=== PATIENT | male | born 1935 | race Caucasian/White ===

== ENCOUNTER 2024-04-29 04:35 | Inpatient (IN) | payer MEDICARE, SELFPAY ==
[2024-04-29] VITALS (11 sets, daily range): BP systolic 115–191; BP diastolic 22–90; PULSE 62–88; RESP 14–25; TEMP 36.3–37.2; O2SAT 60–100; BMI 25.1; BMI 22.3
--- NOTE | 2024-04-29 | ECG_ITS ---
Test Reason : CHEST PAIN Blood Pressure : */* mmHG Vent. Rate : 73 BPM Atrial Rate : 73 BPM P-R Int : 176 ms QRS Dur : 178 ms QT Int : 458 ms P-R-T Axes : * 253 73 degrees QTcB Int : 504 ms Atrial-sensed ventricular-paced rhythm Abnormal ECG When compared with ECG of 29-Apr-2024 05:02, Premature ventricular complexes are no longer Present Referred By: Nathalie Perez Electronically Signed By: LOREN CROUCH MD
--- NOTE | 2024-04-29 | ECG_ITS ---
Test Reason : SOB REPEAT Blood Pressure : */* mmHG Vent. Rate : 73 BPM Atrial Rate : 73 BPM P-R Int : 172 ms QRS Dur : 172 ms QT Int : 478 ms P-R-T Axes : 60 -80 90 degrees QTcB Int : 526 ms AV dual-paced rhythm with occasional Premature ventricular complexes Abnormal ECG When compared with ECG of 29-Apr-2024 04:37, Premature ventricular complexes are now Present Vent. rate has decreased by 16 bpm Referred By: Jeannine Basurto Electronically Signed By: LOREN CROUCH MD
--- NOTE | ~2024-04-29 | XR_ITS ---
EXAMINATION: XR CHEST CLINICAL INFORMATION: pneumonia COMPARISON: April 29, 2024. TECHNIQUE: Frontal view of the chest was obtained. FINDINGS: Pulmonary reticular pattern. Prominence of the interstitial lung markings. Patchy opacity right lower hemithorax. No pleural effusion. No pneumothorax. Cardiomediastinal silhouette appears unchanged with calcified plaque thoracic aorta. Hiatal hernia. Left-sided pacemaker with 2 intact electrode leads in the right heart chambers. Multilevel thoracic spondylosis. Degenerative changes in the right shoulder. XR/XR chest 1V IMPRESSION: Improved aeration since prior exam. Electronically signed by: Rico Mercado MD 05/01/2024 08:23 AM EDT
--- NOTE | ~2024-04-29 | CT_ITS ---
EXAMINATION: CT CHEST WITHOUT CONTRAST CLINICAL INFORMATION: Hypoxia. Shortness of breath. COMPARISON: Correlated to chest x-ray dated April 29, 2024. TECHNIQUE: Multidetector volumetric CT imaging of the chest was done. Axial MIP volume rendering provided. Sagittal and coronal reformatted images were obtained. This CT examination was performed using dose optimization techniques as appropriate, variously including the following: *Automated exposure control *Adjustment of mA and/or kV according to patient size (this includes techniques or standardized protocols for targeted exams where dose is matched to indication/reason for exam; i.e. extremities or head) *Use of iterative reconstruction technique DLP: 286 mGy centimeter. 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 Multiple EKG wires overlapping the cardiomediastinal silhouette and chest. The upper extremities at both sides LUNGS: Multifocal patchy groundglass with a confluent morphology pattern involving the right lower lung lobe. There is a 19 mm soft tissue attenuation with a focal cavitation in the right lower lung lobe. Peribronchial septal and interlobular septal thickening both lower lung lobes and lingula. Centrilobular emphysematous changes involving mostly the upper lung lobes. There is a subtle pulmonary mosaic pattern. The respiratory airways is grossly patent. No bronchiectasis. No honeycombing. 3 mm pulmonary nodule in the right middle lung lobe. MEDIASTINUM: Calcified plaques throughout the thoracic aorta its main branches and the coronary arteries. Calcified plaques in the mitral valve. Electrode leads in the right heart chambers. No pericardial effusion. There is a large volume hiatal hernia. Nonspecific prominent lymph nodes in the mediastinum and likely pulmonary hilum. CORONARY ARTERY CALCIFICATION: Calcified plaques. PLEURA: Bilateral pleural effusions, small to moderate volume. No pneumothorax. AXILLA: Prominent lymph nodes. UPPER ABDOMEN: Hiatal hernia. Exophytic cystic lesions in the kidneys. Renal cortical thinning both kidneys. Calcified plaques in the splenic artery the abdominal aorta its main branches and the origin of the main renal arteries. There is a stent in the proximal right main renal artery. OSSEOUS STRUCTURES: Multilevel spondylosis throughout the included axial skeleton more conspicuous at T8-9, T11-12 and L2-3 levels with incomplete ankylosis L2-3. No acute fracture or gross listhesis. No lytic or blastic lesions. Degenerative changes in the glenohumeral joints. S-shaped curvature of the thoracolumbar spine. CT/CT chest wo IV con IMPRESSION: Multifocal pneumonia with the 19 mm cavitary lesion right lower lung lobe. Neoplasm cannot be excluded. Bilateral pleural effusions, small to moderate volume. Coronary artery disease and atherosclerosis disease. Hiatal hernia, moderate volume. Calcified mitral valve. Concerning medical renal disease. Fleischner guidelines were followed. Electronically signed by: Rico Mercado MD 04/29/2024 10:31 AM EDT
--- NOTE | ~2024-04-29 | XR_ITS ---
CLINICAL HISTORY: sob 1 view chest x-ray Comparison: None Findings: Lungs are well inflated. Left-sided pacemaker with right atrial and right ventricular pacer leads. Cardiac silhouette is within normal limits. Masslike area of consolidation seen within the right lung base measuring 6.2 x 4.7 cm in size. Central interstitial markings are diffusely prominent. Small bilateral pleural effusions, [id number]. IMPRESSION: 1. Congestive heart failure. 2. Masslike consolidation of the right lung base. Although this is most likely due to focal area of infiltrate, neoplastic process is not excluded. Therefore, follow up PA and lateral chest x-ray in 4-6 weeks suggested to ensure resolution. This document has been electronically signed by: Ethan Tomlinson MD on 04/29/2024 06:27:36
[2024-04-29] MEDS: Nitroglycerin 2 % Oint 1 GM Packet 1 INCH TRANSDERMA (04:40)
[2024-04-29] MEDS: Furosemide 100 MG/10 ML VIAL 80 MG IVPUSH ×2 (04:40→16:41)
[2024-04-29] MEDS: LORazepam 2 MG/ML VIAL 1 MG IVPUSH ×2 (04:40→04:45)
--- NOTE | 2024-04-29 04:44 | ECG_ITS ---
Test Reason : SOB Blood Pressure : */* mmHG Vent. Rate : 89 BPM Atrial Rate : 89 BPM P-R Int : 180 ms QRS Dur : 176 ms QT Int : 418 ms P-R-T Axes : * -78 88 degrees QTcB Int : 508 ms Atrial-sensed ventricular-paced rhythm Abnormal ECG No previous ECGs available Referred By: Jeannine Basurto Electronically Signed By: LOREN CROUCH MD
[2024-04-29 04:54] LABS: Venous Blood Gas Refer to POC result
[2024-04-29 04:56] LABS: Basophils Percent Auto 0.6 % (0-2); Eosinophils Absolute Auto 0.5 X10*3/uL (0.0-0.4); Eosinophils Percent Auto 9.6 % (0-4); Hematocrit 34.6 % (42.0-52.0); Hemoglobin 11.4 g/dl (14.0-18.0); Imm Gran Abs Auto 0.02 X10*3/uL (0.00-0.03); Imm Gran Pct Auto 0.4 % (0.0-0.4); Lymphocytes Absolute Auto 0.8 X10*3/uL (1.2-4.9); Lymphocytes Percent Auto 16.4 % (20-40); MANUAL DIFF FLAG NO; Mean Corpuscular HGB Conc 32.9 g/dl (31.0-36.0); Mean Platelet Volume 10.2 fL (9.4-12.4); Monocytes Absolute Auto 0.2 X10*3/uL (0.1-1.2); Neutrophils Absolute Auto 3.5 x10*3/uL (2.0-8.3); Platelet Count 202 X10*3/uL (160-400); Red Blood Count 4.07 X10*6/uL (4.60-5.80)
[2024-04-29 05:00] LABS: VBG Base Excess 4.4 mmol/L; VBG HCO3 30 mmol/L (22-26); VBG pCO2 49 mmHg; VBG pH 7.39 (7.32-7.43); VBG pO2 93 mmHg
[2024-04-29 05:02] LABS: INTERNATIONAL NORM RATIO 1.2 (0.9-1.1); Prothrombin Time 14.1 SEC (10.9-12.4)
[2024-04-29] MEDS: methylPREDNISolone Sod Succ 125 MG/2 ML VIAL IVPUSH (05:04)
[2024-04-29 05:12] LABS: Alanine Aminotransferase 12 U/L (0-40); Albumin Level 4.4 g/dL (3.5-5.0); Alkaline Phosphatase 110 U/L (39-117); Anion Gap 16 (12-20); Aspartate Amino Transferase 18 U/L (5-37); Bilirubin Direct 0.2 mg/dL (0.0-0.5); Bilirubin Total 0.4 mg/dL (0.0-1.0); Blood Urea Nitrogen 47 mg/dL (9-16); Calcium 9.2 mg/dL (8.4-10.2); Carbon Dioxide 25 mmol/L (22-29); Chloride 103 mmol/L (96-108); Creatinine Clr Calc Pharmacy 23.8; Estimated Glomerular Filt Rate 35; Glucose Random 203 mg/dL (60-115); Magnesium 2.3 mg/dL (1.6-2.6); Potassium 4.1 mmol/L (3.3-5.1); Sodium 140 mmol/L (135-145); Total Protein 7.7 g/dL (6.5-8.0)
[2024-04-29 05:15] LABS: B Type Natriuretic Peptide 240 pg/mL (<100); Troponin-I High Sensitivity 20.5 ng/L (<3.5-35.0)
--- NOTE | 2024-04-29 05:28 | ED_ITS ---
HPI - SOB/Dyspnea General Chief Complaint: Dyspnea Stated Complaint: diff breathing Time Seen by Provider: 04/29/24 04:43 Source: EMS Mode of arrival: EMS Limitations: other History of Present Illness ED Provider: Dr. Jeannine Basurto HPI Narrative: patient comes to the emergency room via ambulance from home. According to EMS, they received a phone call from the patient's , patient had significant respiratory distress. Also, patient was complaining of chest pain. Patient states that prior to arrival he took 3 tablets of nitroglycerin for the chest pain and shortness of breath without any relief. EMS/fire department arrived and was rubbing the patient to the emergency room at [facility]. However, patient became significantly tachypneic, short of breath, combative and they had to reroute to [facility]. On arrival, patient's blood pressure 191/81, in significant respiratory distress, using BiPAP. Unable to give any history due to respiratory distress. Related Data Allergies Allergy/AdvReac Type Severity Reaction Status Date / Time budesonide [From Symbicort] Allergy Unknown Verified 04/29/24 07:31 cephalexin Allergy Unknown Verified 04/29/24 07:31 formoterol [From Symbicort] Allergy Unknown Verified 04/29/24 07:31 lansoprazole [From Prevacid] Allergy Unknown Verified 04/29/24 07:31 lisinopril Allergy Unknown Verified 04/29/24 07:31 quinine Allergy Unknown Verified 04/29/24 07:31 regadenoson Allergy Unknown Verified 04/29/24 07:31 Iodinated Contrast Media AdvReac Unknown Verified 04/29/24 07:32 [Contrast Dye] Review of Systems 2 Review of Systems: Yes Unobtainable due to mental condition and Other PMFSH Past Medical History Medical History (Updated 04/29/24 @ 07:43 by Jeannine Basurto MD) NSTEMI (non-ST elevated myocardial infarction) Occult GI bleeding Short-term memory loss Iron deficiency anemia BPH (benign prostatic hyperplasia) COPD (chronic obstructive pulmonary disease) CKD (chronic kidney disease) CHF (congestive heart failure) Aortic stenosis Peripheral vascular disease Renal artery stenosis 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 Atrial fibrillation CAD, multiple vessel Hyperlipidemia Hypertension Surgical History (Updated 04/29/24 @ 06:03 by Jeannine Basurto MD) History of percutaneous coronary intervention S/P renal artery angioplasty Social History Social History Advance Directives: No Advance Directives Information Provided: Yes Do you have a plan to hurt others: No Plan Physical Exam 2 Vital Signs: Vital Signs: Last Vital Signs Temp 97.7 F 04/29/24 06:00 Pulse 67 04/29/24 06:00 Resp 18 04/29/24 06:00 BP 119/35 L 04/29/24 06:00 Pulse Ox 99 04/29/24 06:00 O2 Del Method CPAP 04/29/24 06:00 BMI result Body Mass Index 25.1 Const: Other: Appearance: Alert. having difficulty breathing, clammy, very uncomfortable, pale Eyes: Pupils equal, round and reactive to light. ENT: Pharynx normal. Neck: Normal inspection. Neck supple. No lymph nodes noted. No crepitus CVS: irregularly irregular, heart rate control 80-100 Pulses normal. Normal S1 and S2 Respiratory: No respiratory distress. Breath sounds normal. No Wheezing. No rales Abdomen: Soft and nontender. No rigidity. No distention. Skin: pale and clammy Extremities: No lower extremity edema. No Lacerations. No Rash Neuro: moving all extremities, no slurred speech Psych: very anxious Course Course Course Narrative: I requested records from [facility].. Patient was recently in [facility] at the beginning of March. an echocardiogram was done on 03/10/2024, revealing a moderately reduced left ventricular systolic function, ejection fraction 39% and mild to moderate aortic stenosis, [id number] mitral regurgitation patient was discharged from [facility] with a diagnosis of CHF with reduced ejection fraction, iron deficiency anemia, acute on chronic blood- loss anemia, occult GI bleed, hiatal hernia, CHF exacerbation, atrial fibrillation, coronary artery disease, COPD, NSTEMI Medications Administered Discontinued Medications Generic Name Dose Route Start Last Admin Trade Name Freq PRN Reason Stop Dose Admin Albuterol Sulfate 7.5 mg/ 0 mg 04/29/24 04:57 04/29/24 05:34 Albuterol/Ipratropium 3 ml INHALE 04/29/24 04:58 1 each ONCE ONE Administration Furosemide 80 mg 04/29/24 04:45 04/29/24 04:40 Furosemide 100 Mg/10 Ml Vial IVPUSH 04/29/24 04:46 80 mg ONCE ONE Administration Protocol Piperacillin Sod/Tazobactam 50 mls @ 100 mls/hr 04/29/24 06:13 04/29/24 07:28 Sod 3.375 gm/ Sodium Chloride IV 04/29/24 06:42 Infused ONCE ONE Infusion Lorazepam 1 mg 04/29/24 05:33 04/29/24 04:45 Lorazepam 2 Mg/Ml Vial IVPUSH 04/29/24 05:34 1 mg ONCE ONE Administration Lorazepam 1 mg 04/29/24 05:33 04/29/24 04:40 Lorazepam 2 Mg/Ml Vial IVPUSH 04/29/24 05:34 1 mg ONCE ONE Administration Methylprednisolone Sodium Succinate 125 mg 04/29/24 04:45 04/29/24 05:04 Methylprednisolone Sod Succ 125 Mg/2 Ml Vial IVPUSH 04/29/24 04:46 125 mg ONCE ONE Administration Nitroglycerin 1 inch 04/29/24 04:45 04/29/24 04:40 Nitroglycerin 2 % Oint 1 Gm Packet TRANSDERMA 04/29/24 04:46 1 inch ONCE ONE Administration Medical Decision Making Medical Decision Making MDM Narrative: Patient has bilateral rales, crackles, and decreased breath sounds. On arrival, patient was switched to BiPAP, patient was given 80 mg of IV Lasix, nitro paste of note, the BiPAP was put on secondary to respiratory failure from CHF exacerbation / pulmonary edema patient was very anxious on arrival, patient received initially 1 mg of Ativan without any significant improvement, then patient received a 2nd dose of Ativan 1 mg. also, patient has history of COPD, patient's breath sounds are decreased, patient receiving nebulization treatments, steroids at this time, 06:15, looking at the chest x-ray, seems that patient may have consolidation versus a mass. Patient does have pulmonary edema. We will empirically treat the patient with IV antibiotics. Patient's blood pressure significantly elevated prior to arrival, likely caused the patient to go into flash pulmonary edema. patient has not had any episodes of hypotension, no fever, normal lactic. Sepsis is not suspected I discussed the patient with Dr. Tiwari from the ICU, patient being admitted. Patient doing well on BiPAP blood pressure 119/35, heart rate 67, oxygen saturation 99% patient states he no longer has chest pain Differential Diagnosis Differential Diagnoses: The differential diagnosis associated with the presentation includes ( Chronic lung disease exacerbation, respiratory failure, CHF exacerbation, pneumonia) Admission/Observation Consideration of admission/observation: Escalation of care including admission/observation considered Consult Healthcare Provider Management of the patient was discussed with: Hospitalist and Plumber Lab Data MDM Lab Attestation statement: I reviewed the patient's lab results. 04/29/24 04:51 04/29/24 04:51 Labs: Lab Results 04/29/24 04/29/24 04/29/24 Range/Units 04:51 04:55 04:56 WBC 5.0 (4.8-10.8) X10*3/uL RBC 4.07 L (4.60-5.80) X10*6/uL Hgb 11.4 L (14.0-18.0) g/dl Hct 34.6 L (42.0-52.0) % MCV 85.0 (80.0-98.0) fL MCH 28.0 (27.0-33.0) pg MCHC 32.9 (31.0-36.0) g/dl RDW 20.0 H (11.0-16.0) % Plt Count 202 (160-400) X10*3/uL MPV 10.2 (9.4-12.4) fL Immature Gran % (Auto) 0.4 (0.0-0.4) % Neut % (Auto) 70.0 (45-73) % Lymph % (Auto) 16.4 L (20-40) % [place] % (Auto) 3.0 (2-11) % Eos % (Auto) 9.6 H (0-4) % Baso % (Auto) 0.6 (0-2) % Lymph # (Auto) 0.8 L (1.2-4.9) X10*3/uL [place] # (Auto) 0.2 (0.1-1.2) X10*3/uL Eos # (Auto) 0.5 H (0.0-0.4) X10*3/uL Baso # (Auto) 0.0 (0.0-0.2) X10*3/uL Abs Immat Gran (auto) 0.02 (0.00-0.03) X10*3/uL Absolute Neuts (auto) 3.5 (2.0-8.3) x10*3/uL Absolute Nucleated RBC 0.000 (0.0-0.012) X10*3/uL Nucleated RBC % (auto) 0.0 (0.0-0.2) /100WBC Hold Purple Top SEE NOTE PT 14.1 H (10.9-12.4) SEC INR 1.2 H (0.9-1.1) Hold Blue Top Cancelled SEE NOTE VBG pH 7.39 (7.32-7.43) VBG pCO2 49 mmHg VBG pO2 93 mmHg VBG HCO3 30 H (22-26) mmol/L VBG O2 Saturation 98.0 % VBG Base Excess 4.4 mmol/L Sodium 140 (135-145) mmol/L Potassium 4.1 (3.3-5.1) mmol/L Chloride 103 (96-108) mmol/L Carbon Dioxide 25 (22-29) mmol/L Anion Gap 16 (12-20) BUN 47 H (9-16) mg/dL Creatinine 1.83 H (0.5-1.4) mg/dL Estim Creat Clear Calc 23.8 Estimated GFR 35 Random Glucose 203 H (60-115) mg/dL Lactic Acid 1.0 (0.5-2.0) mmol/L Calcium 9.2 (8.4-10.2) mg/dL Magnesium 2.3 (1.6-2.6) mg/dL Total Bilirubin 0.4 (0.0-1.0) mg/dL Direct Bilirubin 0.2 (0.0-0.5) mg/dL AST 18 (5-37) U/L ALT 12 (0-40) U/L Alkaline Phosphatase 110 (39-117) U/L Troponin I High Sens 20.5 (<3.5-35.0) ng/L B-Natriuretic Peptide 240 H (<100) pg/mL Total Protein 7.7 (6.5-8.0) g/dL Albumin 4.4 (3.5-5.0) g/dL Hold Green Top See Note Influenza Type A (PCR) NEGATIVE (Negative) Influenza Type B (PCR) NEGATIVE (Negative) RSV RNA Qual (PCR) NEGATIVE (Negative) SARS-CoV-2 RNA (RT-PCR) NEGATIVE (Negative) Independent Interpretation I performed an independent interpretation of an: Plain X-Ray Radiology Impression Discussion of test interpretation with radiology: I have reviewed the radiologist's reading. Radiologist Impression: Findings: Lungs are well inflated. Left-sided pacemaker with right atrial and right ventricular pacer leads. Cardiac silhouette is within normal limits. Masslike area of consolidation seen within the right lung base measuring 6.2 x 4.7 cm in size. Central interstitial markings are diffusely prominent. Small bilateral pleural effusions, [id number]. IMPRESSION: 1. Congestive heart failure. 2. Masslike consolidation of the right lung base. Although this is most likely due to focal area of infiltrate, neoplastic process is not excluded. Therefore, follow up PA and lateral chest x-ray in 4-6 weeks suggested to ensure resolution. Critical Care Time Critical Care Time Critical Care Time: Yes Total Critical Care Time: 90 Attestation: I have personally provided critical care time. Time includes review of lab data, radiology results, discussion with consultants, and monitoring for potential decompensation. Intervention performed as documented. Discharge Plan Discharge Clinical Impression: Acute exacerbation of CHF (congestive heart failure), ADAM (acute kidney injury) Patient Disposition: Admitted As Inpatient Print Language: Somali
[2024-04-29] MEDS: Albuterol Sulfate 7.5 MG, Albuterol/Iprat 2.5/0.5MG 3 ML 3 ML INHALE (05:34)
[2024-04-29 05:55] LABS: Influenza A PCR NEGATIVE (Negative); Influenza B PCR NEGATIVE (Negative); Resp Syncy Virus RNA Qual PCR NEGATIVE (Negative); SARS COV2 PCR INHOUSE NEGATIVE (Negative)
--- NOTE | 2024-04-29 05:57 | PC.NURSE ---
pt alert but unable to state orientation, pt stating help me . on ems arrival to [facility], pt was 62% on room air. pt was altered according to ems and was unresponsive. pt was manually bagged on his way into the ed and sating 100%> pt was immediatly placed on CPAP by rt. 20G was placed in right ac by ems, new 20G in right bicep and left foot. labs obtained. pt AV paced on tele 80-88bpm. pt medicated per apr. 16F temp sensing lyons placed at this time with 200ml yellow output. pt famiyl at bedside.
--- NOTE | 2024-04-29 06:20 | PC.NURSE ---
per dr. boateng, remove pt nitro paste at this time due to blood pressure.
[2024-04-29] MEDS: Piperacillin Sodium/Tazobactam 3.375 GM in 0.9 % Sodium Chloride 50 ML IV (06:34)
--- NOTE | 2024-04-29 07:27 | PC.NURSE ---
Assumed care of patient at 0700, patient with cpap in place, able to nod head yes to yes or no questions, family at bedside
--- NOTE | 2024-04-29 07:32 | PC.NURSE ---
Allergies reviewed with - stating patient not allergic to contrast media but kidney MD stated patient should not have CT`s with contrast d/t condition of kidneys
--- NOTE | 2024-04-29 09:26 | PHA.MEDREC ---
Addendum entered by Fernando Browne [facility] 04/29/24 10:28: Reviewed by [facility] Original Note: Pharmacy Consult ? Medication Reconciliation Pharmacy has completed the medication reconciliation.Spoke with patients at bedside who had a list on hand I was able to confirm with her that these were her husbands most up to date medications. The patients confirmed he takes Ferrous Sulfate 325mg tabs and Vitamin C 500mg tabs together every other day and confirmed he took them yesterday. The confirmed her has been taking the Pantoprazole 40mg tab once in the morning and 2 tabs at bedtime. The confirmed her took 3 nitroglycerin tabs this morning around [id number] and everything else was taken yesterday.
--- NOTE | 2024-04-29 09:58 | P.HPHOSP_ITS ---
History of Present Illness Date of Service: 04/29/24 Attending physician on admission: Pily Alves Chief Complaint: sob 88-year-old male with history of CAD, IgA, HFrEF 39%, COPD, paroxysmal atrial fibrillation anticoagulated with Eliquis, PVD, HTN, Mobitz 2 s/p pacemaker placement, and CKD stage 3 presented to the hospital via ambulance from home due to significant respiratory distress that started early this morning. He was also complaining of chest pain that did not improve with nitroglycerin x3. Initially, had been in route to [facility] given patient had been admitted last month but was rerouted to [facility] due to significant tachypnea, dyspnea, and patient being combative. He was placed on BiPAP EN route. The patient is awake but unable to provide much history and unable to answer orientation questions. The patient's and son are at bedside who do assist with history. His reports that he has a chronic intermittent cough but he has been experiencing some clear sputum production over the last 5 days. No fevers, chills. No abdominal pain, nausea, vomiting, diarrhea, palpitations. Recently hospitalized at [facility] from 03/09-03/13 and treated for CHF exacerbation, iron-deficiency anemia with possible alcohol GI bleed. He was advised to continue anticoagulation. She reports compliance with Lasix. Reports he has actually been gaining weight, most recently was 126 lb (57 kg) per his . Weight at [facility] on discharge was 59 kg. However, on arrival weight with bed scale was 60.7 kg. While admitted, dicussions were had with the family reagrding hospice/palliative care but family had but unsure at the time. He was made DNR/DNI On arrival to the hospital, patient was requiring Ambu bag was hypertensive to 191/81 and tachypneic. He was weaned to CPAP with improvement in work of breathing. He is currently on 2 L via OxyMask maintaining oximetry 98%. There is no leukocytosis. H/H 11.4/34.6%. Renal function baseline with creatinine 1.83, electrolyte levels normal. BNP 240. Troponin 20.5. Negative COVID, flu, RSV. CXR shows CHF and right lower lobe mass, possible inflammatory versus infectious. Subsequent CT of the chest shows a multifocal pneumonia with the 1.9 mm cavitary lesion right lower lobe, neoplasm can not be excluded with bilateral pleural effusions, [id number] volume. In the ED, he received 80 mg IV Lasix, lorazepam, nitroglycerin, Zosyn, methylprednisolone, and DuoNeb. Review of Systems 2 Review of Systems: Yes Unobtainable due to mental status [facility] Medical History (Updated 04/29/24 @ 11:38 by SHAWN Wiseman) ADAM (acute kidney injury) NSTEMI (non-ST elevated myocardial infarction) Occult GI bleeding Short-term memory loss Iron deficiency anemia BPH (benign prostatic hyperplasia) COPD (chronic obstructive pulmonary disease) CKD (chronic kidney disease) CHF (congestive heart failure) Aortic stenosis Peripheral vascular disease Renal artery stenosis Hx of correction use of blood thinners Atrial fibrillation CAD, multiple vessel Hyperlipidemia Hypertension Surgical History History of percutaneous coronary intervention S/P renal artery angioplasty Social History Advance Directives: No Advance Directives Information Provided: Yes Do you have a plan to hurt others: No Plan Meds Allergies Allergy/AdvReac Type Severity Reaction Status Date / Time budesonide [From Symbicort] Allergy Unknown Verified 04/29/24 07:31 cephalexin Allergy Unknown Verified 04/29/24 07:31 formoterol [From Symbicort] Allergy Unknown Verified 04/29/24 07:31 lansoprazole [From Prevacid] Allergy Unknown Verified 04/29/24 07:31 lisinopril Allergy Unknown Verified 04/29/24 07:31 quinine Allergy Unknown Verified 04/29/24 07:31 regadenoson Allergy Unknown Verified 04/29/24 07:31 Iodinated Contrast Media AdvReac Unknown Verified 04/29/24 07:32 [Contrast Dye] Active Medications: Current Medications Acetaminophen (Acetaminophen 325 Mg Tablet) 650 mg PO Q6H PRN PRN Reason: Pain, Mild 1-3,fever,headache Calcium Carbonate (Calcium Carbonate 750 Mg Tab.Chew) 750 mg PO Q4H PRN PRN Reason: Heartburn Magnesium Hydroxide (Milk Of Magnesia 30 Ml Oral.Susp) 30 ml PO DAILY PRN PRN Reason: Constipation Melatonin (Melatonin 3 Mg Tablet) 6 mg PO BEDTIME PRN PRN Reason: Insomnia Sodium Chloride (0.9 % Sodium Chloride Flush 3 Ml Syringe) 3 ml IVFLUSH QSHIFT [facility], [facility]–1983 Home Medications ?Medication ?Instructions ?Recorded ?Confirmed ?Last Taken ?Type acetaminophen 500 mg tablet 500 mg PO Q6H PRN Pain 04/29/24 04/29/24 04/28/24 History albuterol sulfate 2.5 mg/3 mL 2.5 mg inhalation Q6H PRN 04/29/24 04/29/24 04/28/24 History (0.083 %) solution for nebulization Shortness Of Breath Or Wheezing albuterol sulfate 90 mcg/actuation 2 puff inhalation Q4H PRN 04/29/24 04/29/24 04/28/24 History aerosol inhaler Shortness Of Breath Or Wheezing apixaban 2.5 mg tablet (Eliquis) 2.5 mg PO BID 04/29/24 04/29/24 04/28/24 History ascorbic acid (vitamin C) 500 mg 500 mg PO Q48H 04/29/24 04/29/24 04/28/24 History tablet (Vitamin C) atorvastatin 20 mg tablet 20 mg PO BEDTIME 04/29/24 04/29/24 04/28/24 History calcitriol 0.5 mcg capsule 0.5 mcg PO DAILY 04/29/24 04/29/24 04/28/24 History carvedilol 12.5 mg tablet 12.5 mg PO BID 04/29/24 04/29/24 04/28/24 History cholecalciferol (vitamin D3) 25 25 mcg PO DAILY 04/29/24 04/29/24 04/28/24 History mcg (1,000 unit) tablet (Vitamin D3) ferrous sulfate 325 mg (65 mg 325 mg PO Q48H 04/29/24 04/29/24 04/28/24 History iron) tablet furosemide 80 mg tablet 80 mg PO DAILY 04/29/24 04/29/24 04/28/24 History hydrocortisone 1 % topical cream 1 appl topical BID PRN Inflammation 04/29/24 04/29/24 04/28/24 History hydroxyzine HCl 25 mg tablet 25 mg PO TID PRN Inflammation/Rash 04/29/24 04/29/24 04/28/24 History isosorbide mononitrate 120 mg 120 mg PO DAILY 04/29/24 04/29/24 04/28/24 History tablet,extended release 24 hr magnesium oxide 400 mg PO DAILY 04/29/24 04/29/24 04/28/24 History minoxidil 2.5 mg tablet 5 mg PO DAILY 04/29/24 04/29/24 04/28/24 History nifedipine 30 mg tablet,extended 30 mg PO BEDTIME 04/29/24 04/29/24 04/28/24 History release nitroglycerin 0.4 mg sublingual 0.4 mg sublingual Q5M PRN Chest 04/29/24 04/29/24 04/29/24 03:30 History tablet Pain 1.2 mg pantoprazole 40 mg tablet,delayed 40 mg PO DAILY@0600 04/29/24 04/29/24 04/28/24 History release pantoprazole 40 mg tablet,delayed 80 mg PO BEDTIME@1630 04/29/24 04/29/24 04/28/24 History release sucralfate 1 gram tablet 1 g PO TID 04/29/24 04/29/24 04/28/24 History tamsulosin 0.4 mg capsule 0.4 mg PO BEDTIME 04/29/24 04/29/24 04/28/24 History umeclidinium 62.5 mcg-vilanterol 1 ea inhalation DAILY 04/29/24 04/29/24 04/28/24 History 25 mcg/actuation powdr for inhalation (Anoro Ellipta) vibegron 75 mg tablet (Gemtesa) 75 mg PO DAILY 04/29/24 04/29/24 04/28/24 History vitamins A,C,Z-owbo-sypmab 2,148 1 tab PO BID 04/29/24 04/29/24 04/28/24 History mcg-113 mg-45 mg-17.4 mg tablet (PreserVision AREDS) Physical Exam 2 Vital Signs and Narrative: Vital Signs: Last Vital Signs Temp 97.7 F 04/29/24 06:00 Pulse 67 04/29/24 06:00 Resp 18 04/29/24 06:00 BP 119/35 L 04/29/24 06:00 Pulse Ox 99 04/29/24 06:00 O2 Del Method CPAP 04/29/24 06:00 BMI result Body Mass Index 25.1 Constitutional - Awake and Alert, No apparent distress Eyes - PERRLA, EOMI Cardiovascular - S1S2, RRR, No edema. +JVD Respiratory - Normal lung expansion, Normal respiratory effort, No respiratory distress, bilateral crackles Gastrointestinal - NT / ND; +BS; No rebound or guarding Extremities - no calf tenderness bilaterally, no swelling Skin - Warm/Dry Neurological - Awake, disoriented, unable to perform neurological exam 2/2 mental status but face symmetrical Psychological - Appropriate affect Results Labs 04/29/24 04:51 04/29/24 04:51 Labs: Laboratory Results - last 24 hr 04/29/24 04/29/24 04/29/24 04:51 04:55 04:56 MCV 85.0 MCH 28.0 MCHC 32.9 RDW 20.0 H Plt Count 202 MPV 10.2 Immature Gran % (Auto) 0.4 Neut % (Auto) 70.0 Lymph % (Auto) 16.4 L [place] % (Auto) 3.0 Eos % (Auto) 9.6 H Baso % (Auto) 0.6 Lymph # (Auto) 0.8 L [place] # (Auto) 0.2 Eos # (Auto) 0.5 H Baso # (Auto) 0.0 Abs Immat Gran (auto) 0.02 Absolute Neuts (auto) 3.5 Absolute Nucleated RBC 0.000 Nucleated RBC % (auto) 0.0 Hold Purple Top SEE NOTE PT 14.1 H INR 1.2 H Hold Blue Top Cancelled SEE NOTE VBG pH 7.39 VBG pCO2 49 VBG pO2 93 VBG HCO3 30 H VBG O2 Saturation 98.0 VBG Base Excess 4.4 Anion Gap 16 Estim Creat Clear Calc 23.8 Estimated GFR 35 Random Glucose 203 H Lactic Acid 1.0 Calcium 9.2 Magnesium 2.3 Total Bilirubin 0.4 Direct Bilirubin 0.2 AST 18 ALT 12 Alkaline Phosphatase 110 B-Natriuretic Peptide 240 H Total Protein 7.7 Albumin 4.4 Hold Green Top See Note Influenza Type A (PCR) NEGATIVE Influenza Type B (PCR) NEGATIVE RSV RNA Qual (PCR) NEGATIVE SARS-CoV-2 RNA (RT-PCR) NEGATIVE Assessment and Plan (1) Multifocal pneumonia: Status: Acute (2) Acute hypoxemic respiratory failure: Status: Acute (3) Cavitary lesion of lung: Status: Acute (4) Acute metabolic encephalopathy: Status: Acute (5) Acute exacerbation of CHF (congestive heart failure): Status: Acute Plan 88-year-old male with history of CAD, IgA, HFrEF 39%, COPD, paroxysmal atrial fibrillation anticoagulated with Eliquis, PVD, HTN, Mobitz 2 s/p pacemaker placement, and CKD stage 3 admitted for acute hypoxemic respiratory failure 2/2 CHF exacerbation and multifocal pneumonia Acute hypoxemic respiratory failure secondary to below VBG shows pH 7.39, pCO2 49, HCO3 30 Continue supplemental O2 to maintain oximetry 90-92% Wean as tolerated Acute exacerbation of HFrEF Recent echo 03/2024 @[facility]: The left ventricular wall thickness is mildly increased. The LV systolic function is moderately reduced . LV systolic function 39%. There is moderate septal dyssynergy consistent with LBBB or paced rhythm. The apex is poorly visualized. Left ventricular filling pressures are indeterminate. The left atrium is severely dilated. There is lipomatous hypertrophy of the interatrial septum. The aortic valve is probably trileaflet . The non-coronary cusp is severely thickened and calcified . The aortic valve appears moderately calcified. The aortic valve leaflet opening is mildly decreased . There is mild to moderate aortic stenosis. There is no significant aortic regurgitation. There is moderate mitral annular calcification. The mitral valve opening is normal. There is mild to moderate mitral regurgitation. The right ventricle is normal in size. A pacer/ICD wire is seen in the right ventricle. IV lasix 80mg BID Strict I&O- continue lyons Cardic diet Daily weights Follow renal function/lytes Multifocal pneumonia Recent hospital admission 03/09-03/13 [facility] IV zosyn and vanco (04/29) Strep pneumo antigen, Legionella antigen, sputum culture, and MRSA nasal swab pending Cavitary lesion possibly infectious vs inflammatory vs neoplastic pulmonology consult Acute metabolic encephalopathy background unspecified cognitive impairment likely in setting of infection Keep NPO for now. Advace diet as mentation improves Chronic iron deficiency anemia w/ hx large hiatal hernia H/H 11.4/34.6% Continue iron supplementation, ppi Follow H/H CAD/paroxysmal AFib continue coreg, statin, nifedipine, isosorbide Continue Eliquis for anticoagulation COPD No acute exacerbation Continue maintenance inhalers, albuterol p.r.n. CKD stage 3 Renal function baseline, around 1.8 DVT prophylaxis-Eliquis DNR/DNI Patient requires inpatient stay at least 2 midnights due to acute hypoxemic respiratory failure and metabolic encephalopathy secondary to CHF exacerbation and multifocal pneumonia requiring IV diuresis with close monitoring of renal function/lytes as well as IV abx given recent hospitalization with close monitoring of mentation and respiratory status Quality Stroke Does the patient have a stroke diagnosis?: No VTE Prior VTE?: No VTE Risk Level:: Medical - moderate - high VTE Device Contraindication: Treatment Not Indicated VTE Drug Contraindication: N/A - Med Ordered
--- NOTE | 2024-04-29 10:36 | PC.NURSE ---
Patient with temp sensing lyons placed by previous shift. Patient sating 100% on 2 liters via oxy mask. Denies pain or discomfort , family at bedside
[2024-04-29] MEDS: vancomycin HCL 1,500 MG in 0.9 % Sodium Chloride 500 ML 333.33 MG IV (11:23)
--- NOTE | 2024-04-29 11:40 | PHA.PROG ---
Admission Date/Time: April 29, 2024 09:51 Indication: respiratory Weight in k.7 kg Adjusted body weight in Kg: [place] body weight in Kg: Obesity Dosing Indication % IBW: BMI 22.3 Serum Creatinine - Last 168 Hours 04/29/24 04:51 Creatinine 1.83 H Estimated CrCl and GFR - Last 168 Hours 04/29/24 04:51 Estim Creat Clear Calc 23.8 Estimated GFR 35 Vancomycin Loading Dose: 1500mg X1 Current Vancomycin Dosing Regimen: 500mg Q24H Vancomycin Monitoring using AUC goal of 400 - 600 range with trough as surrogate marker: 414 Date and Time for next Vancomycin Level to be drawn: 05/01 @1000 Pharmacist Comments on Vancomycin Plan: Starting off with 500mg Q24H per pt's age, weight and SCr. To be adjusted as needed after trough. Vancomycin dosing will take advantage of [employer] as a clinical decision support tool that uses Bayesian modeling to calculate individual patient's pharmacokinetic parameters and forecast the patient's drug concentration time course with the target goal AUC 24 range of 400 - 600 mg/L/hr.
[2024-04-29] MEDS: calcitrioL 0.25 MCG CAPSULE 0.5 MCG PO (12:04)
--- NOTE | 2024-04-29 12:46 | PC.NURSE ---
Per patient request switched to nc at 1 liter. Tolerating well. Patient remains NPO
[2024-04-29] MEDS: Piperacillin Sodium/Tazobactam 4.5 GM in 0.9 % Sodium Chloride 100 ML IV ×2 (14:25→23:26)
[2024-04-29 15:48] LABS: MRSA Nasal PCR NEGATIVE (Negative); SA Nasal PCR POSITIVE (Negative)
--- NOTE | 2024-04-29 16:08 | PC.NURSE ---
Patient reports severe sudden onset chest pain, provider aware ekg obtained. VSS , 97% on RA
[2024-04-29] MEDS: LORazepam 2 MG/ML VIAL 0.5 MG IVPUSH (16:40)
--- NOTE | 2024-04-29 18:01 | PC.NURSE ---
transferred into hospital bed for comfort. Patient reports is no longer feeling anxious, currently sating 99% on 1 02.
--- NOTE | 2024-04-29 22:28 | PC.NURSE ---
Pt a&ox4, no signs of distress Pt requesting food, pt advised he is NPO at this time Pts remains at bedside Provider Aneudy held all 2100 PO meds Plan of care ongoing.
--- NOTE | 2024-04-29 23:29 | PC.NURSE ---
Pt medicated per [facility] Plan of care ongoing.
[2024-04-29] MEDS: 0.9 % Sodium Chloride Flush 3 ML SYRINGE IVFLUSH (23:33)
[2024-04-30] VITALS (10 sets, daily range): BP systolic 95–180; BP diastolic 45–89; PULSE 55–87; RESP 18–22; TEMP 36.5–37.2; O2SAT 95–100; BMI 20.7
[2024-04-30] MEDS: Nitroglycerin 0.4 MG TAB.SUBL SUBLINGUAL (00:25)
--- NOTE | 2024-04-30 00:35 | PC.NURSE ---
This service writer advisor assumed care of this Pt at 2300. Pt A&Ox3, denies any pain. at bedside. Report complete. 0030: Pt reports 09/15 substernal CP. Pt given one dose of sublingual nitro with effectiveness.
[2024-04-30] MEDS: LORazepam 2 MG/ML VIAL 1 MG IVPUSH (03:00)
[2024-04-30 07:12] LABS: MANUAL DIFF FLAG NO
[2024-04-30 07:26] LABS: Basophils Percent Auto 0.5 % (0-2); Eosinophils Absolute Auto 0.1 X10*3/uL (0.0-0.4); Eosinophils Percent Auto 1.1 % (0-4); Hematocrit 35.6 % (42.0-52.0); Hemoglobin 11.4 g/dl (14.0-18.0); Imm Gran Abs Auto 0.05 X10*3/uL (0.00-0.03); Imm Gran Pct Auto 0.8 % (0.0-0.4); Lymphocytes Percent Auto 14.7 % (20-40); Mean Corpuscular Hemoglobin 27.5 pg (27.0-33.0); Mean Platelet Volume 10.6 fL (9.4-12.4); Monocytes Absolute Auto 0.2 X10*3/uL (0.1-1.2); Monocytes Percent Auto 3.3 % (2-11); Neutrophils Absolute Auto 5.3 x10*3/uL (2.0-8.3); Neutrophils Percent Auto 79.6 % (45-73); Platelet Count 224 X10*3/uL (160-400); Red Blood Count 4.14 X10*6/uL (4.60-5.80); Red Cell Distribution Width 20.3 % (11.0-16.0); White Blood Count 6.6 X10*3/uL (4.8-10.8)
[2024-04-30 07:38] LABS: Anion Gap 13 (12-20); Blood Urea Nitrogen 48 mg/dL (9-16); Calcium 9.3 mg/dL (8.4-10.2); Carbon Dioxide 29 mmol/L (22-29); Chloride 106 mmol/L (96-108); Creatinine Clr Calc Pharmacy 21.8; Estimated Glomerular Filt Rate 35; Glucose Random 115 mg/dL (60-115); Potassium 3.5 mmol/L (3.3-5.1); Sodium 144 mmol/L (135-145)
[2024-04-30 07:49] LABS: B Type Natriuretic Peptide 581 pg/mL (<100)
--- NOTE | 2024-04-30 08:56 | PM.CNPUL ---
History of Present Illness History of Present Illness Consult date: 04/30/24 Chief complaint: CHF, HYPOXIA Narrative: This is an inpatient pulmonary consultation. 88-year-old male with history of CAD, IgA, HFrEF 39%, COPD, paroxysmal atrial fibrillation anticoagulated with Eliquis, PVD, HTN, Mobitz 2 s/p pacemaker placement, and CKD stage 3 presented to the hospital via ambulance from home due to significant respiratory distress that started early this morning. He was also complaining of chest pain that did not improve with nitroglycerin x3. Initially, had been in route to [facility] given patient had been admitted last month but was [place] [facility] [place] to significant tachypnea, dyspnea, and patient being combative. He was placed on BiPAP EN route. The patient is awake but unable to provide much history and unable to answer orientation questions. The patient's and son are at bedside who do assist with history. His reports that he has a chronic intermittent cough but he has been experiencing some clear sputum production over the last 5 days. On arrival to the hospital, patient was weaned to CPAP with improvement in work of breathing. He is currently on 2 L via OxyMask maintaining oximetry 98%. CT of the chest personally reviewed by me, shows a multifocal pneumonia with the 1.9 mm cavitary lesion right lower lobe, large hiatal hernia and bilateral pleural effusions, [id number] volume. In the ED, he received 80 mg IV Lasix, lorazepam, nitroglycerin, Zosyn, methylprednisolone, and DuoNeb. The patient is currently confused and not able to give additional details. Review of Systems Review of Systems: Yes Unobtainable due to mental condition and Unobtainable due to mental status [facility] Past Medical History Medical History (Updated 04/29/24 @ 11:38 by SHAWN Wiseman) ADAM (acute kidney injury) NSTEMI (non-ST elevated myocardial infarction) Occult GI bleeding Short-term memory loss Iron deficiency anemia BPH (benign prostatic hyperplasia) COPD (chronic obstructive pulmonary disease) CKD (chronic kidney disease) CHF (congestive heart failure) Aortic stenosis Peripheral vascular disease Renal artery stenosis Hx of long-term use of blood thinners Atrial fibrillation CAD, multiple vessel Hyperlipidemia Hypertension Surgical History Surgical History History of percutaneous coronary intervention S/P renal artery angioplasty Social History Social History Household Members: Family Housing: House Do you presently have visiting nurse or other home services: No Patient Tobacco Use Status: Former Tobacco user Second Hand Smoke Exposure: No Meds Allergies Allergy/AdvReac Type Severity Reaction Status Date / Time budesonide [From Symbicort] Allergy Unknown Verified 04/29/24 07:31 cephalexin Allergy Unknown Verified 04/29/24 07:31 formoterol [From Symbicort] Allergy Unknown Verified 04/29/24 07:31 lansoprazole [From Prevacid] Allergy Unknown Verified 04/29/24 07:31 lisinopril Allergy Unknown Verified 04/29/24 07:31 quinine Allergy Unknown Verified 04/29/24 07:31 regadenoson Allergy Unknown Verified 04/29/24 07:31 Iodinated Contrast Media AdvReac Unknown Verified 04/29/24 07:32 [Contrast Dye] Active Medications: Current Medications Acetaminophen (Acetaminophen 325 Mg Tablet) 650 mg PO Q6H PRN PRN Reason: Pain, Mild 1-3,fever,headache Albuterol Sulfate (Albuterol Sulfate (0.083%) 2.5 Mg/3 Ml Vial.Neb) 2.5 mg INHALE Q6H PRN PRN Reason: Shortness Of Breath Or Wheezing Albuterol Sulfate (Albuterol Sulfate 90 Mcg 8 Gm Inhaler) 2 puff INHALE Q4H PRN PRN Reason: Shortness Of Breath Or Wheezing Apixaban (Apixaban 2.5 Mg Tablet) 2.5 mg PO BID [facility] Last Admin: 04/29/24 21:51 Dose: Not Given Ascorbic Acid (Ascorbic Acid 500 Mg Tablet) 500 mg PO Q48H [facility] Last Admin: 04/29/24 10:52 Dose: Not Given Atorvastatin Calcium (Atorvastatin Calcium 20 Mg Tablet) 20 mg PO BEDTIME [facility] Last Admin: 04/29/24 21:51 Dose: Not Given Calcitriol (Calcitriol 0.25 Mcg Capsule) 0.5 mcg PO DAILY [facility] Last Admin: 04/29/24 12:04 Dose: 0.5 mcg Calcium Carbonate (Calcium Carbonate 750 Mg Tab.Chew) 750 mg PO Q4H PRN PRN Reason: Heartburn Carvedilol (Carvedilol 12.5 Mg Tablet) 12.5 mg PO BID [facility]; Protocol Last Admin: 04/29/24 21:51 Dose: Not Given Ferrous Sulfate (Ferrous Sulfate 324 Mg Tablet.) 324 mg PO Q48H [facility] Furosemide (Furosemide 100 Mg/10 Ml Vial) 80 mg IVPUSH BID@0900,1800 [facility]; Protocol Last Admin: 04/29/24 16:41 Dose: 80 mg Piperacillin Sod/Tazobactam (Sod 4.5 gm/ Sodium Chloride) 100 mls @ 200 mls/hr IV Q8H [facility] Last Infusion: 04/30/24 00:25 Dose: Infused Vancomycin HCl 500 mg/ Sodium (Chloride) 110 mls @ 110 mls/hr IV Q24H [facility] Isosorbide Mononitrate (Isosorbide Mononitrate 60 Mg Tab.Er.24h) 120 mg PO DAILY [facility]; Protocol Magnesium Hydroxide (Milk Of Magnesia 30 Ml Oral.Susp) 30 ml PO DAILY PRN PRN Reason: Constipation Magnesium Oxide (Magnesium Oxide 400 Mg Tablet) 400 mg PO DAILY [facility] Melatonin (Melatonin 3 Mg Tablet) 6 mg PO BEDTIME PRN PRN Reason: Insomnia Minoxidil (Minoxidil 2.5 Mg Tablet) 5 mg PO DAILY [facility] Multivitamins/Vitamin C (Multivitamin Tablet) 1 tab PO BID [facility] Last Admin: 04/29/24 21:51 Dose: Not Given Nifedipine (Nifedipine Er 30 Mg Tab.Er.24) 30 mg PO BEDTIME [facility] Last Admin: 04/29/24 21:52 Dose: Not Given Nitroglycerin (Nitroglycerin 0.4 Mg Tab.Subl) 0.4 mg SUBLINGUAL Q5M PRN PRN Reason: Chest Pain Last Admin: 04/30/24 00:25 Dose: 0.4 mg Non-Formulary Medication (Umeclidinium-Vilanterol [Anoro Ellipta]) 1 each INHALE RDAILY [facility] Last Admin: 04/30/24 08:21 Dose: Not Given Pat Own Med ( Vibegron [Gemtesa] 75 Mg Tablet) 75 mg PO DAILY [facility] Stop: 04/30/24 09:01 Omeprazole (Omeprazole 20 Mg Capsule.) 20 mg PO DAILY@0630 [facility] Last Admin: 04/30/24 06:33 Dose: Not Given Omeprazole (Omeprazole 40 Mg Capsule.) 40 mg PO BEDTIME@1630 [facility] Last Admin: 04/29/24 16:46 Dose: Not Given Pharmacy Consult (Consult Rx Vancomycin Dosing) 1 each MISCELLANE DAILY PRN PRN Reason: Consult order Sodium Chloride (0.9 % Sodium Chloride Flush 3 Ml Syringe) 3 ml IVFLUSH QSHIFT [facility] Last Admin: 04/29/24 23:33 Dose: 3 ml Sucralfate (Sucralfate 1 Gm Tablet) 1 gm PO TID [facility] Last Admin: 04/29/24 21:51 Dose: Not Given Tamsulosin HCl (Tamsulosin Hcl 0.4 Mg Capsule) 0.4 mg PO BEDTIME [facility] Last Admin: 04/29/24 21:52 Dose: Not Given Vitamin D (Cholecalciferol (Vitamin D3) 25 Mcg Tablet) 25 mcg PO DAILY [facility] Home Medications ?Medication ?Instructions ?Recorded ?Confirmed ?Last Taken ?Type acetaminophen 500 mg tablet 500 mg PO Q6H PRN Pain 04/29/24 04/29/24 04/28/24 History albuterol sulfate 2.5 mg/3 mL 2.5 mg inhalation Q6H PRN 04/29/24 04/29/24 04/28/24 History (0.083 %) solution for nebulization Shortness Of Breath Or Wheezing albuterol sulfate 90 mcg/actuation 2 puff inhalation Q4H PRN 04/29/24 04/29/24 04/28/24 History aerosol inhaler Shortness Of Breath Or Wheezing apixaban 2.5 mg tablet (Eliquis) 2.5 mg PO BID 04/29/24 04/29/24 04/28/24 History ascorbic acid (vitamin C) 500 mg 500 mg PO Q48H 04/29/24 04/29/24 04/28/24 History tablet (Vitamin C) atorvastatin 20 mg tablet 20 mg PO BEDTIME 04/29/24 04/29/24 04/28/24 History calcitriol 0.5 mcg capsule 0.5 mcg PO DAILY 04/29/24 04/29/24 04/28/24 History carvedilol 12.5 mg tablet 12.5 mg PO BID 04/29/24 04/29/24 04/28/24 History cholecalciferol (vitamin D3) 25 25 mcg PO DAILY 04/29/24 04/29/24 04/28/24 History mcg (1,000 unit) tablet (Vitamin D3) ferrous sulfate 325 mg (65 mg 325 mg PO Q48H 04/29/24 04/29/24 04/28/24 History iron) tablet furosemide 80 mg tablet 80 mg PO DAILY 04/29/24 04/29/24 04/28/24 History hydrocortisone 1 % topical cream 1 appl topical BID PRN Inflammation 04/29/24 04/29/24 04/28/24 History hydroxyzine HCl 25 mg tablet 25 mg PO TID PRN Inflammation/Rash 04/29/24 04/29/24 04/28/24 History isosorbide mononitrate 120 mg 120 mg PO DAILY 04/29/24 04/29/24 04/28/24 History tablet,extended release 24 hr magnesium oxide 400 mg PO DAILY 04/29/24 04/29/24 04/28/24 History minoxidil 2.5 mg tablet 5 mg PO DAILY 04/29/24 04/29/24 04/28/24 History nifedipine 30 mg tablet,extended 30 mg PO BEDTIME 04/29/24 04/29/24 04/28/24 History release nitroglycerin 0.4 mg sublingual 0.4 mg sublingual Q5M PRN Chest 04/29/24 04/29/24 04/29/24 03:30 History tablet Pain 1.2 mg pantoprazole 40 mg tablet,delayed 40 mg PO DAILY@0600 04/29/24 04/29/24 04/28/24 History release pantoprazole 40 mg tablet,delayed 80 mg PO BEDTIME@1630 04/29/24 04/29/24 04/28/24 History release sucralfate 1 gram tablet 1 g PO TID 04/29/24 04/29/24 04/28/24 History tamsulosin 0.4 mg capsule 0.4 mg PO BEDTIME 04/29/24 04/29/24 04/28/24 History umeclidinium 62.5 mcg-vilanterol 1 ea inhalation DAILY 04/29/24 04/29/24 04/28/24 History 25 mcg/actuation powdr for inhalation (Anoro Ellipta) vibegron 75 mg tablet (Gemtesa) 75 mg PO DAILY 04/29/24 04/29/24 04/28/24 History vitamins A,C,M-yupl-clmhyo 2,148 1 tab PO BID 04/29/24 04/29/24 04/28/24 History mcg-113 mg-45 mg-17.4 mg tablet (PreserVision AREDS) Physical Exam Vital Signs: Vital Signs: Last Vital Signs Temp 97.7 F 04/30/24 08:00 Pulse 87 04/30/24 08:00 Resp 20 04/30/24 08:00 BP 170/89 H 04/30/24 08:00 Pulse Ox 97 04/30/24 08:00 O2 Del Method Room Air 04/30/24 08:00 O2 Flow Rate 1 04/29/24 20:57 BMI result Body Mass Index 20.7 Const: Other: Appearance: Alert. having difficulty breathing, clammy, very uncomfortable, pale Eyes: Pupils equal, round and reactive to light. ENT: Pharynx normal. Neck: Normal inspection. Neck supple. No lymph nodes noted. No crepitus CVS: irregularly irregular, heart rate control 80-100 Pulses normal. Normal S1 and S2 Respiratory: No respiratory distress. Breath sounds normal. No Wheezing. No rales Abdomen: Soft and nontender. No rigidity. No distention. Skin: pale and clammy Extremities: No lower extremity edema. No Lacerations. No Rash Neuro: moving all extremities, no slurred speech Psych: very anxious Results Laboratory Findings 04/30/24 06:41 04/30/24 06:41 ABG, PT/INR, D-dimer: PT/INR, D-dimer PT 14.1 SEC (10.9-12.4) H 04/29/24 04:51 INR 1.2 (0.9-1.1) H 04/29/24 04:51 Abnormal lab findings: Abnormal Labs 04/29/24 04/29/24 04/29/24 04:51 04:56 14:28 RBC 4.07 L Hgb 11.4 L Hct 34.6 L RDW 20.0 H Immature Gran % (Auto) Neut % (Auto) Lymph % (Auto) 16.4 L Eos % (Auto) 9.6 H Lymph # (Auto) 0.8 L Eos # (Auto) 0.5 H Abs Immat Gran (auto) PT 14.1 H INR 1.2 H VBG HCO3 30 H BUN 47 H Creatinine 1.83 H Random Glucose 203 H B-Natriuretic Peptide 240 H Nasal S. aureus Screen POSITIVE A 04/30/24 06:41 RBC 4.14 L Hgb 11.4 L Hct 35.6 L RDW 20.3 H Immature Gran % (Auto) 0.8 H Neut % (Auto) 79.6 H Lymph % (Auto) 14.7 L Eos % (Auto) Lymph # (Auto) 1.0 L Eos # (Auto) Abs Immat Gran (auto) 0.05 H PT INR VBG HCO3 BUN 48 H Creatinine 1.83 H Random Glucose B-Natriuretic Peptide 581 H Nasal S. aureus Screen Microbiology: Microbiology 04/29/24 05:14 Blood - Venous Blood Culture - Preliminary No growth after 24 hours. 04/29/24 04:54 Blood - Venous Blood Culture - Preliminary No growth after 24 hours. Assessment and Plan (1) Cavitary lesion of lung: Status: Acute (2) Acute hypoxemic respiratory failure: Status: Acute (3) Multifocal pneumonia: Status: Acute (4) Acute exacerbation of CHF (congestive heart failure): Status: Acute Plan It is likely that the cavitary lesion is a component of cavitary pneumonia based on the location of the RLL from his high risk of microaspiration which can result in a polymicrobial infection. Neoplasm can be a concominant process. REC: continue Zosyn IV repeat CXR HOB elevated diuresis as tolerated Once stable should continue oral abx x 14 days and repeat imaging studies as an outpt. Procedures Date of Service Date of Service: 04/30/24
[2024-04-30] MEDS: Apixaban 2.5 MG TABLET PO ×2 (11:48→21:44)
[2024-04-30] MEDS: vancomycin HCL 500 MG in 0.9 % Sodium Chloride 100 ML 110 MG IV (11:48)
[2024-04-30] MEDS: carvediloL 12.5 MG TABLET PO ×2 (11:48→21:44)
[2024-04-30] MEDS: Furosemide 100 MG/10 ML VIAL 80 MG IVPUSH (11:49)
[2024-04-30] MEDS: 0.9 % Sodium Chloride Flush 3 ML SYRINGE IVFLUSH (11:50)
--- NOTE | 2024-04-30 13:11 | HO.PM.IMPN ---
Subjective Subjective Date of Service: 04/30/24 Interval History: seen and evaluated this morning Feels better more alert and interactive on room air no other events Review of Systems Review of Systems: Yes all other systems are reviewed and are negative Physical Exam Vital Signs: Vital Signs: Last Vital Signs Temp 98.9 F 04/30/24 11:44 Pulse 60 04/30/24 11:48 Resp 20 04/30/24 11:44 BP 172/70 H 04/30/24 11:44 Pulse Ox 98 04/30/24 11:44 O2 Del Method Room Air 04/30/24 11:44 O2 Flow Rate 1 04/29/24 20:57 BMI result Body Mass Index 20.7 Const: Other: Constitutional : interactive, not in distress Cardiovascular : no JVP, no lower extremity edema Respiratory : bilateral chest movement, not in resp distress Gastrointestinal: soft, lax, Non tender Skin : Warm, Dry Neurological : Alert & oriented to self only , No focal deficit Objective Data Active Medications Acetaminophen (Acetaminophen 325 Mg Tablet) 650 mg PO Q6H PRN PRN Reason: Pain, Mild 1-3,fever,headache Albuterol Sulfate (Albuterol Sulfate (0.083%) 2.5 Mg/3 Ml Vial.Neb) 2.5 mg INHALE Q6H PRN PRN Reason: Shortness Of Breath Or Wheezing Albuterol Sulfate (Albuterol Sulfate 90 Mcg 8 Gm Inhaler) 2 puff INHALE Q4H PRN PRN Reason: Shortness Of Breath Or Wheezing Apixaban (Apixaban 2.5 Mg Tablet) 2.5 mg PO BID [facility] Last Admin: 04/30/24 11:48 Dose: 2.5 mg Documented By: FREDDY Ascorbic Acid (Ascorbic Acid 500 Mg Tablet) 500 mg PO Q48H [facility] Last Admin: 04/29/24 10:52 Dose: Not Given Documented By: AB Non-Admin Reason: Patient Refused Atorvastatin Calcium (Atorvastatin Calcium 20 Mg Tablet) 20 mg PO BEDTIME [facility] Last Admin: 04/29/24 21:51 Dose: Not Given Documented By: MUNDO Non-Admin Reason: Physician Held Med Calcitriol (Calcitriol 0.25 Mcg Capsule) 0.5 mcg PO DAILY [facility] Last Admin: 04/30/24 12:10 Dose: Not Given Documented By: FREDDY Non-Admin Reason: NPO Calcium Carbonate (Calcium Carbonate 750 Mg Tab.Chew) 750 mg PO Q4H PRN PRN Reason: Heartburn Carvedilol (Carvedilol 12.5 Mg Tablet) 12.5 mg PO BID [facility]; Protocol Last Admin: 04/30/24 11:48 Dose: 12.5 mg Documented By: FREDDY Ferrous Sulfate (Ferrous Sulfate 324 Mg Tablet.Dr) 324 mg PO Q48H [facility] Last Admin: 04/30/24 12:10 Dose: Not Given Documented By: FREDDY Non-Admin Reason: NPO Furosemide (Furosemide 100 Mg/10 Ml Vial) 80 mg IVPUSH BID@0900,1800 [facility]; Protocol Last Admin: 04/30/24 11:49 Dose: 80 mg Documented By: FREDDY Piperacillin Sod/Tazobactam (Sod 4.5 gm/ Sodium Chloride) 100 mls @ 200 mls/hr IV Q8H [facility] Last Admin: 04/30/24 09:06 Dose: Not Given Documented By: FREDDY Non-Admin Reason: No Access Vancomycin HCl 500 mg/ Sodium (Chloride) 110 mls @ 110 mls/hr IV Q24H [facility] Last Infusion: 04/30/24 12:54 Dose: Infused Documented By: FREDDY Isosorbide Mononitrate (Isosorbide Mononitrate 60 Mg Tab.Er.24h) 120 mg PO DAILY [facility]; Protocol Last Admin: 04/30/24 12:11 Dose: Not Given Documented By: FREDDY Non-Admin Reason: NPO Magnesium Hydroxide (Milk Of Magnesia 30 Ml Oral.Susp) 30 ml PO DAILY PRN PRN Reason: Constipation Magnesium Oxide (Magnesium Oxide 400 Mg Tablet) 400 mg PO DAILY [facility] Last Admin: 04/30/24 12:11 Dose: Not Given Documented By: FREDDY Non-Admin Reason: NPO Melatonin (Melatonin 3 Mg Tablet) 6 mg PO BEDTIME PRN PRN Reason: Insomnia Minoxidil (Minoxidil 2.5 Mg Tablet) 5 mg PO DAILY [facility] Last Admin: 04/30/24 12:11 Dose: Not Given Documented By: FREDDY Non-Admin Reason: NPO Multivitamins/Vitamin C (Multivitamin Tablet) 1 tab PO BID [facility] Last Admin: 04/30/24 12:11 Dose: Not Given Documented By: FREDDY Non-Admin Reason: NPO Nifedipine (Nifedipine Er 30 Mg Tab.Er.24) 30 mg PO BEDTIME [facility] Last Admin: 04/29/24 21:52 Dose: Not Given Documented By: MUNDO Non-Admin Reason: Physician Held Med Nitroglycerin (Nitroglycerin 0.4 Mg Tab.Subl) 0.4 mg SUBLINGUAL Q5M PRN PRN Reason: Chest Pain Last Admin: 04/30/24 00:25 Dose: 0.4 mg Documented By: ROSY Non-Formulary Medication (Umeclidinium-Vilanterol [Anoro Ellipta]) 1 each INHALE RDAILY [facility] Last Admin: 04/30/24 08:21 Dose: Not Given Documented By: PRETTY Non-Admin Reason: Med Not Available Omeprazole (Omeprazole 20 Mg Capsule.) 20 mg PO DAILY@0630 [facility] Last Admin: 04/30/24 06:33 Dose: Not Given Documented By: JOSE DE JESUS Non-Admin Reason: NPO Omeprazole (Omeprazole 40 Mg Capsule.) 40 mg PO BEDTIME@1630 [facility] Last Admin: 04/29/24 16:46 Dose: Not Given Documented By: AB Non-Admin Reason: Patient Refused Pharmacy Consult (Consult Rx Vancomycin Dosing) 1 each MISCELLANE DAILY PRN PRN Reason: Consult order Sodium Chloride (0.9 % Sodium Chloride Flush 3 Ml Syringe) 3 ml IVFLUSH QSHIFT [facility] Last Admin: 04/30/24 11:50 Dose: 3 ml Documented By: FREDDY Sucralfate (Sucralfate 1 Gm Tablet) 1 gm PO TID [facility] Last Admin: 04/30/24 12:11 Dose: Not Given Documented By: FREDDY Non-Admin Reason: NPO Tamsulosin HCl (Tamsulosin Hcl 0.4 Mg Capsule) 0.4 mg PO BEDTIME [facility] Last Admin: 04/29/24 21:52 Dose: Not Given Documented By: MUNDO Non-Admin Reason: Physician Held Med Vitamin D (Cholecalciferol (Vitamin D3) 25 Mcg Tablet) 25 mcg PO DAILY [facility] Last Admin: 04/30/24 12:10 Dose: Not Given Documented By: FREDDY Non-Admin Reason: NPO Labs 04/30/24 06:41 04/30/24 06:41 Labs: Laboratory Results - last 24 hr 04/29/24 04/30/24 14:28 06:41 MCV 86.0 MCH 27.5 MCHC 32.0 RDW 20.3 H Plt Count 224 MPV 10.6 Immature Gran % (Auto) 0.8 H Neut % (Auto) 79.6 H Lymph % (Auto) 14.7 L [place] % (Auto) 3.3 Eos % (Auto) 1.1 Baso % (Auto) 0.5 Lymph # (Auto) 1.0 L [place] # (Auto) 0.2 Eos # (Auto) 0.1 Baso # (Auto) 0.0 Abs Immat Gran (auto) 0.05 H Absolute Neuts (auto) 5.3 Absolute Nucleated RBC 0.000 Nucleated RBC % (auto) 0.0 Anion Gap 13 Estim Creat Clear Calc 21.8 Estimated GFR 35 Random Glucose 115 Calcium 9.3 B-Natriuretic Peptide 581 H Nasal Screen MRSA (PCR) NEGATIVE Nasal S. aureus Screen POSITIVE A Nasal MRSA/S.aureus Interp SEE NOTE Microbiology Microbiology Results: Microbiology 04/29/24 05:14 Blood Culture - Preliminary Blood - Venous No growth after 24 hours. 04/29/24 04:54 Blood Culture - Preliminary Blood - Venous No growth after 24 hours. Assessment and Plan (1) Acute metabolic encephalopathy: Status: Acute (2) Cavitary lesion of lung: Status: Acute (3) Acute hypoxemic respiratory failure: Status: Acute (4) Multifocal pneumonia: Status: Acute (5) Acute exacerbation of CHF (congestive heart failure): Status: Acute Plan 88-year-old male with history of CAD, IgA, HFrEF 39%, COPD, paroxysmal atrial fibrillation anticoagulated with Eliquis, PVD, HTN, Mobitz 2 s/p pacemaker placement, and CKD stage 3 admitted for acute hypoxemic respiratory failure 2/2 CHF exacerbation and multifocal pneumonia Acute hypoxemic respiratory failure secondary to Acute exacerbation of HFrEF Recent echo 03/2024 @[facility] LV systolic function 39% Decrease IV lasix 80mg daily instead of bid Strict I&O- continue lyons Cardic diet Daily weights Follow renal function/lytes Multifocal pneumonia with cavitary lesion Recent hospital admission 03/09-03/13 [facility] IV zosyn and vanco (04/29) Strep pneumo antigen, Legionella antigen, sputum culture, and MRSA nasal swab pending pulmonology consult, continue Zosyn IV, diuresis, continue oral abx x 14 days and repeat imaging studies as an outpt. repeat CXR as needed Acute metabolic encephalopathy with hx of unspecified cognitive impairment more alert today [employer] FRAME eval Advace diet tolerated Chronic iron deficiency anemia w/ hx large hiatal hernia H/H 11.4/34.6% Continue iron supplementation, ppi Follow H/H CAD/paroxysmal AFib continue coreg, statin, nifedipine, isosorbide Continue Eliquis for anticoagulation COPD No acute exacerbation Continue maintenance inhalers, albuterol p.r.n. CKD stage 3 Renal function baseline, around 1.8 DVT prophylaxis-Eliquis DNR/DNI Patient requires inpatient stay overnight due to acute hypoxemic respiratory failure and metabolic encephalopathy secondary to CHF exacerbation and multifocal pneumonia requiring IV diuresis with close monitoring of renal function/lytes as well as IV abx given recent hospitalization with close monitoring of mentation and respiratory status Quality Stroke Does the patient have a stroke diagnosis?: No VTE Prior VTE?: No VTE Risk Level:: Medical - moderate - high VTE Device Contraindication: Treatment Not Indicated VTE Drug Contraindication: N/A - Med Ordered
--- NOTE | 2024-04-30 13:21 | MHC.SL.SWA ---
Risk of Aspiration Due to: History of Pneumonia Reduced Cognition Dysphasia Diet Status: UPGRADE to regular solids and thin liquids Liquid Consistency and Strategies for Safe Swallow: Liquid Intake Recommendation: Thin Liquid Intake Strategies: Small Sips Solid Food Consistency: Dietary Recommendations: Regular Additional Modifications to Solid Foods: Use sauce/gravy to moisten foods Oral Medication Intake: Whole with Liquid Please contact the pharmacy regarding appropriate crushable or liquid drug formulations that are available whenever modified delivery is recommended. Compensatory Strategies and Precautions to be Taken for Safe Swallow: Sitting Upright (90 deg) Small Bites and Sips Alternate Liquids/Solids Rate of Ingestion Change Supervision While Eating and Drinking for Safe Swallow: Total Supervision (1:1) Recommendation for Speech: Inpatient Speech Therapy Modified Barium Swallow Study - Outpatient Comment: Pt seen for bedside swallow evaluation. Recommend UPGRADE to REGULAR solids and THIN liquids w/ pills WHOLE. Recommend 1-1 supervision at this time to monitor for any s/s aspiration and provide recommended cueing for safe eating. D/t family reporting hx of globus sensation and intermittent choking on solids; recommend small bites, slow rate of ingestion, alternate liquid and solid, and moisten solid foods. Outpatient MBSS may be warranted. Pt may benefit from evaluation of cognition by FILTR[facility] CRUSHER w/ possible further evaluation by neuro. FILTROSE CRUSHER to continue to follow to monitor toleration of diet. Date Range for Service Req: M-F [place] Clinican/Clinical Fellow: No Supervisory Statement: I have reviewed and agree with the student/clinical fellow's documentation: N/A Speech Language Pathologist: Mami Ellis M.A., [facility]-FIL[facility] CRUSHER
--- NOTE | 2024-04-30 14:43 | MHC.CM.PN ---
IMM 04/30/24, EMR REVIEWED, PT ADMITTED W/HYPOXIA/CHF EXAC, CM MET W/PT AND PT'S /HCP MIKE AT BEDSIDE, MIKE ANSWERS MOST QUESTIONS AND REPORTS SHE CARES FOR PT AND DOES NOT FEEL THEY NEED VNA SERVICES AT THIS TIME. PT LIVES W/ MIKE, PT USES A FWW AT HOME AND ROLLATOR WALKER FOR OUTINGS D/T SEAT & SHOWER BENCH FOR DME, MIKE PROVIDES ALL CARE FOR PT. MIKE CONFIRMS PCP ON FILE IS CORRECT, MIKE HAS COPY OF POLST AND COPY PLACED IN CHART, HCP REQUESTED FROM /[facility], NOT ON FILE AT [facility] AND AWAITING RESPONSE FROM [facility].
[2024-04-30] MEDS: Sucralfate 1 GM TABLET PO ×2 (15:00→21:44)
[2024-04-30] MEDS: Piperacillin Sodium/Tazobactam 4.5 GM in 0.9 % Sodium Chloride 100 ML IV ×2 (15:00→21:45)
[2024-04-30] MEDS: Albuterol Sulfate (0.083%) 2.5 MG/3 ML VIAL.NEB INHALE (21:11)
[2024-04-30] MEDS: Multivitamin TABLET 1 TAB PO (21:44)
[2024-04-30] MEDS: NIFEdipine ER 30 MG TAB.ER.24 PO (21:44)
[2024-04-30] MEDS: Atorvastatin Calcium 20 MG TABLET PO (21:44)
[2024-04-30] MEDS: Tamsulosin HCL 0.4 MG CAPSULE PO (21:45)
[2024-05-01] VITALS (10 sets, daily range): BP systolic 78–166; BP diastolic 43–72; PULSE 55–82; RESP 14–20; TEMP 36.4–37.2; O2SAT 94–98; BMI 20.6
[2024-05-01] MEDS: Omeprazole 20 MG CAPSULE.DR PO (05:51)
[2024-05-01] MEDS: Piperacillin Sodium/Tazobactam 4.5 GM in 0.9 % Sodium Chloride 100 ML IV ×3 (05:51→20:52)
[2024-05-01 06:34] LABS: MANUAL DIFF FLAG NO
[2024-05-01 06:41] LABS: Basophils Absolute Auto 0.1 X10*3/uL (0.0-0.2); Eosinophils Absolute Auto 0.4 X10*3/uL (0.0-0.4); Eosinophils Percent Auto 8.7 % (0-4); Hematocrit 34.6 % (42.0-52.0); Hemoglobin 11.2 g/dl (14.0-18.0); Imm Gran Abs Auto 0.01 X10*3/uL (0.00-0.03); Imm Gran Pct Auto 0.2 % (0.0-0.4); Lymphocytes Absolute Auto 1.1 X10*3/uL (1.2-4.9); Lymphocytes Percent Auto 21.7 % (20-40); Mean Corpuscular HGB Conc 32.4 g/dl (31.0-36.0); Mean Corpuscular Hemoglobin 27.7 pg (27.0-33.0); Mean Corpuscular Volume 85.4 fL (80.0-98.0); Mean Platelet Volume 10.5 fL (9.4-12.4); Monocytes Absolute Auto 0.3 X10*3/uL (0.1-1.2); Neutrophils Absolute Auto 3.2 x10*3/uL (2.0-8.3); Neutrophils Percent Auto 63.4 % (45-73); Platelet Count 229 X10*3/uL (160-400); Red Blood Count 4.05 X10*6/uL (4.60-5.80); Red Cell Distribution Width 20.5 % (11.0-16.0)
[2024-05-01 06:54] LABS: Anion Gap 14 (12-20); Blood Urea Nitrogen 46 mg/dL (9-16); Calcium 9.1 mg/dL (8.4-10.2); Carbon Dioxide 28 mmol/L (22-29); Chloride 104 mmol/L (96-108); Creatinine Clr Calc Pharmacy 22.1; Estimated Glomerular Filt Rate 36; Glucose Random 110 mg/dL (60-115); Potassium 3.5 mmol/L (3.3-5.1); Sodium 142 mmol/L (135-145)
[2024-05-01] MEDS: Isosorbide Mononitrate 60 MG TAB.ER.24H 120 MG PO (08:53)
[2024-05-01] MEDS: Cholecalciferol (Vitamin D3) 25 MCG TABLET PO (08:53)
[2024-05-01] MEDS: Ascorbic Acid 500 MG TABLET PO (08:54)
[2024-05-01] MEDS: minoxidiL 2.5 MG TABLET 5 MG PO (08:54)
[2024-05-01] MEDS: Multivitamin TABLET 1 TAB PO ×2 (08:54→22:08)
[2024-05-01] MEDS: Sucralfate 1 GM TABLET PO ×3 (08:54→22:08)
[2024-05-01] MEDS: carvediloL 12.5 MG TABLET PO (08:54)
[2024-05-01] MEDS: Magnesium Oxide 400 MG TABLET PO (08:54)
[2024-05-01] MEDS: Apixaban 2.5 MG TABLET PO ×2 (08:54→22:08)
[2024-05-01] MEDS: 0.9 % Sodium Chloride Flush 3 ML SYRINGE IVFLUSH ×3 (08:55→22:13)
[2024-05-01] MEDS: calcitrioL 0.25 MCG CAPSULE 0.5 MCG PO (08:58)
[2024-05-01] MEDS: Furosemide 100 MG/10 ML VIAL 80 MG IVPUSH (08:58)
[2024-05-01 10:21] LABS: Vancomycin Random 13.6 mcg/mL (15-20)
--- NOTE | 2024-05-01 10:30 | HE.PHANOTE ---
Re Vanc Patient is on 500mg q24h, this should be alright, but due to long interval dosing their AUC is going to take a while to reach goal. Will give a 1 time dose of 750mg today and continue with 500mg daily. This should boost the AUC to a therapeutic range today.
[2024-05-01 10:39] LABS: Glucose, Whole Blood 152 mg/dL (60-115)
[2024-05-01] MEDS: 0.9 % Sodium Chloride 500 ML 999 ML IV (10:44)
--- NOTE | 2024-05-01 11:14 | HO.PM.IMPN ---
Subjective Subjective Date of Service: 05/01/24 Interval History: epigastric pain, sob Physical Exam Vital Signs: Vital Signs: Last Vital Signs Temp 98.6 F 05/01/24 08:00 Pulse 71 05/01/24 10:51 Resp 20 05/01/24 10:51 BP 151/50 H 05/01/24 08:00 Pulse Ox 94 05/01/24 08:00 O2 Del Method Nasal Cannula 05/01/24 08:00 O2 Flow Rate 2 05/01/24 08:00 BMI result Body Mass Index 20.6 alert, frail, confused, wheezing, ill appearing Objective Data Active Medications Acetaminophen (Acetaminophen 325 Mg Tablet) 650 mg PO Q6H PRN PRN Reason: Pain, Mild 1-3,fever,headache Albuterol Sulfate (Albuterol Sulfate (0.083%) 2.5 Mg/3 Ml Vial.Neb) 2.5 mg INHALE Q6H PRN PRN Reason: Shortness Of Breath Or Wheezing Last Admin: 04/30/24 21:11 Dose: 2.5 mg Documented By: KAIT Albuterol Sulfate (Albuterol Sulfate 90 Mcg 8 Gm Inhaler) 2 puff INHALE Q4H PRN PRN Reason: Shortness Of Breath Or Wheezing Apixaban (Apixaban 2.5 Mg Tablet) 2.5 mg PO BID [facility] Last Admin: 05/01/24 08:54 Dose: 2.5 mg Documented By: GUILLERMO Ascorbic Acid (Ascorbic Acid 500 Mg Tablet) 500 mg PO Q48H [facility] Last Admin: 05/01/24 08:54 Dose: 500 mg Documented By: GUILLERMO Atorvastatin Calcium (Atorvastatin Calcium 20 Mg Tablet) 20 mg PO BEDTIME [facility] Last Admin: 04/30/24 21:44 Dose: 20 mg Documented By: JOSE DE JESUS Calcitriol (Calcitriol 0.25 Mcg Capsule) 0.5 mcg PO DAILY [facility] Last Admin: 05/01/24 08:58 Dose: 0.5 mcg Documented By: GUILLERMO Calcium Carbonate (Calcium Carbonate 750 Mg Tab.Chew) 750 mg PO Q4H PRN PRN Reason: Heartburn Carvedilol (Carvedilol 12.5 Mg Tablet) 12.5 mg PO BID [facility]; Protocol Last Admin: 05/01/24 08:54 Dose: 12.5 mg Documented By: GUILLERMO Ferrous Sulfate (Ferrous Sulfate 324 Mg Tablet.Dr) 324 mg PO Q48H [facility] Last Admin: 04/30/24 12:10 Dose: Not Given Documented By: FREDDY Non-Admin Reason: NPO Furosemide (Furosemide 100 Mg/10 Ml Vial) 80 mg IVPUSH DAILY [facility]; Protocol Last Admin: 05/01/24 08:58 Dose: 80 mg Documented By: GUILLERMO Piperacillin Sod/Tazobactam (Sod 4.5 gm/ Sodium Chloride) 100 mls @ 200 mls/hr IV Q8H [facility] Last Infusion: 05/01/24 06:27 Dose: Infused Documented By: JOSE DE JESUS Vancomycin HCl 500 mg/ Sodium (Chloride) 110 mls @ 110 mls/hr IV Q24H [facility] Vancomycin HCl 750 mg/ Sodium (Chloride) 265 mls @ 265 mls/hr IV ONCE ONE Stop: 05/01/24 12:59 Sodium Chloride (Ns) 500 mls @ 999 mls/hr IV .Q31M [facility] Stop: 05/01/24 11:15 Last Admin: 05/01/24 10:44 Dose: 999 mls/hr Documented By: GUILLERMO Isosorbide Mononitrate (Isosorbide Mononitrate 60 Mg Tab.Er.24h) 120 mg PO DAILY [facility]; Protocol Last Admin: 05/01/24 08:53 Dose: 120 mg Documented By: GUILLERMO Magnesium Hydroxide (Milk Of Magnesia 30 Ml Oral.Susp) 30 ml PO DAILY PRN PRN Reason: Constipation Magnesium Oxide (Magnesium Oxide 400 Mg Tablet) 400 mg PO DAILY [facility] Last Admin: 05/01/24 08:54 Dose: 400 mg Documented By: GUILLERMO Melatonin (Melatonin 3 Mg Tablet) 6 mg PO BEDTIME PRN PRN Reason: Insomnia Minoxidil (Minoxidil 2.5 Mg Tablet) 5 mg PO DAILY [facility] Last Admin: 05/01/24 08:54 Dose: 5 mg Documented By: GUILLERMO Multivitamins/Vitamin C (Multivitamin Tablet) 1 tab PO BID [facility] Last Admin: 05/01/24 08:54 Dose: 1 tab Documented By: GUILLEROM Nifedipine (Nifedipine Er 30 Mg Tab.Er.24) 30 mg PO BEDTIME [facility] Last Admin: 04/30/24 21:44 Dose: 30 mg Documented By: JOSE DE JESUS Nitroglycerin (Nitroglycerin 0.4 Mg Tab.Subl) 0.4 mg SUBLINGUAL Q5M PRN PRN Reason: Chest Pain Last Admin: 04/30/24 00:25 Dose: 0.4 mg Documented By: ROSY Non-Formulary Medication (Umeclidinium-Vilanterol [Anoro Ellipta]) 1 each INHALE RDAILY [facility] Last Admin: 05/01/24 10:48 Dose: 1 each Documented By: MICHAEL Omeprazole (Omeprazole 20 Mg Capsule.) 20 mg PO DAILY@0630 [facility] Last Admin: 05/01/24 05:51 Dose: 20 mg Documented By: JOSE DE JESUS Omeprazole (Omeprazole 40 Mg Capsule.) 40 mg PO BEDTIME@1630 [facility] Last Admin: 04/30/24 17:44 Dose: Not Given Documented By: FREDDY Non-Admin Reason: Patient Refused Pharmacy Consult (Consult Rx Vancomycin Dosing) 1 each MISCELLANE DAILY PRN PRN Reason: Consult order Sodium Chloride (0.9 % Sodium Chloride Flush 3 Ml Syringe) 3 ml IVFLUSH QSHIFT [facility] Last Admin: 05/01/24 08:55 Dose: 3 ml Documented By: GUILLERMO Sucralfate (Sucralfate 1 Gm Tablet) 1 gm PO TID [facility] Last Admin: 05/01/24 08:54 Dose: 1 gm Documented By: GUILLERMO Tamsulosin HCl (Tamsulosin Hcl 0.4 Mg Capsule) 0.4 mg PO BEDTIME [facility] Last Admin: 04/30/24 21:45 Dose: 0.4 mg Documented By: JOSE DE JESUS Vitamin D (Cholecalciferol (Vitamin D3) 25 Mcg Tablet) 25 mcg PO DAILY [facility] Last Admin: 05/01/24 08:53 Dose: 25 mcg Documented By: GUILLERMO Labs 05/01/24 06:03 05/01/24 06:03 Labs: Laboratory Results - last 24 hr 05/01/24 05/01/24 05/01/24 06:03 09:54 10:28 MCV 85.4 MCH 27.7 MCHC 32.4 RDW 20.5 H Plt Count 229 MPV 10.5 Immature Gran % (Auto) 0.2 Neut % (Auto) 63.4 Lymph % (Auto) 21.7 Alexander % (Auto) 5.0 Eos % (Auto) 8.7 H Baso % (Auto) 1.0 Lymph # (Auto) 1.1 L Alexander # (Auto) 0.3 Eos # (Auto) 0.4 Baso # (Auto) 0.1 Abs Immat Gran (auto) 0.01 Absolute Neuts (auto) 3.2 Absolute Nucleated RBC 0.000 Nucleated RBC % (auto) 0.0 Anion Gap 14 Estim Creat Clear Calc 22.1 Estimated GFR 36 POC Glucose 152 H Random Glucose 110 Calcium 9.1 Random Vancomycin 13.6 L Microbiology Microbiology Results: Microbiology 04/29/24 05:14 Blood Culture - Preliminary Blood - Venous No growth after 48 hours. 04/29/24 04:54 Blood Culture - Preliminary Blood - Venous No growth after 48 hours. Assessment and Plan (1) Acute metabolic encephalopathy: Status: Acute (2) Cavitary lesion of lung: Status: Acute (3) Acute hypoxemic respiratory failure: Status: Acute (4) Multifocal pneumonia: Status: Acute (5) Acute exacerbation of CHF (congestive heart failure): Status: Acute Plan 88M PMH CAD s/p ALEJANDRA, IgA, HFrEF 39% with mild to mod , COPD, paroxysmal atrial fibrillation anticoagulated with Eliquis, PVD, HTN, Mobitz 2 s/p pacemaker placement, and CKD stage 3 admitted for acute hypoxemic respiratory failure 2/2 CHF exacerbation and multifocal pneumonia Acute hypoxemic respiratory failure secondary to Acute exacerbation of HFrEF Recent echo 03/2024 @[facility] LV systolic function 39% hold diuretic for hypotension Strict I&O- continue lyons Cardic diet Daily weights Follow renal function/lytes Multifocal pneumonia with cavitary lesion Recent hospital admission 03/09-03/13 [facility] IV zosyn and vanco (04/29) Strep pneumo antigen, Legionella antigen, sputum culture, and MRSA nasal swab negative - dc vanc pulmonology consult, continue Zosyn IV, diuresis, continue oral abx x 14 days and repeat imaging studies as an outpt. repeat CXR as needed Acute metabolic encephalopathy with hx of unspecified cognitive impairment more alert Chronic iron deficiency anemia w/ hx large hiatal hernia H/H 11.4/34.6% Continue iron supplementation, ppi Follow H/H CAD/paroxysmal AFib continue coreg, statin, nifedipine, isosorbide Continue Eliquis for anticoagulation COPD wtih acute decompensation steroids, nebs CKD stage 3 Renal function baseline, around 1.8 DVT prophylaxis-Eliquis DNR/DNI reason for continued hospitalization:sob Quality Stroke Does the patient have a stroke diagnosis?: No VTE Prior VTE?: No VTE Risk Level:: Medical - moderate - high VTE Device Contraindication: Treatment Not Indicated VTE Drug Contraindication: N/A - Med Ordered
[2024-05-01 12:06] LABS: Troponin-I High Sensitivity 35.7 ng/L (<3.5-35.0)
--- NOTE | 2024-05-01 13:21 | MHC.CM.PN ---
EMR REVIEWED, PT W/CHF/MULTIFACTORAL PNA REMAINS ON SUPPLEMENTAL O2, PLAN FOR PT TO WEAN OFF O2 PRIOR TO DC, CM WILL CONT TO FOLLOW DC NEEDS.
--- NOTE | 2024-05-01 15:43 | MHC.SLORD ---
Speech Language Pathology Order Status: Pt resting soundly, daughter and pt at bedside. AIRLINE ATTENDANT reviewed results of clinical bedside swallow evaluation performed yesterday, pt and daugher ageed with recommended diet but did not feel pt would benefit from further assessment of swallow mechanism. Family in agreement with AIRLINE ATTENDANT continuing to monitor pt PO tolerace as indicated.
[2024-05-01] MEDS: methylPREDNISolone Sod Succ 40 MG/ML VIAL IVPUSH (18:16)
[2024-05-01] MEDS: Omeprazole 40 MG CAPSULE.DR PO (18:16)
[2024-05-01 19:23] LABS: Strep Pneumo Ag urine Not Detected (Not Detected)
[2024-05-01] MEDS: Tamsulosin HCL 0.4 MG CAPSULE PO (22:08)
[2024-05-01] MEDS: Atorvastatin Calcium 20 MG TABLET PO (22:08)
[2024-05-02 03:46] VITALS: BP 152/67; PULSE 70; RESP 16; TEMP 36.4; O2SAT 97
[2024-05-02] MEDS: methylPREDNISolone Sod Succ 40 MG/ML VIAL IVPUSH (05:35)
[2024-05-02] MEDS: Omeprazole 20 MG CAPSULE.DR PO (05:35)
[2024-05-02] MEDS: Piperacillin Sodium/Tazobactam 4.5 GM in 0.9 % Sodium Chloride 100 ML IV (05:35)
[2024-05-02 06:00] VITALS: BMI 21.1
[2024-05-02 06:08] LABS: Legionella Ag Urine Not Detected (Not Detected)
[2024-05-02 07:13] VITALS: BP 167/70; PULSE 58; RESP 20; TEMP 36.4; O2SAT 92
[2024-05-02] MEDS: carvediloL 12.5 MG TABLET PO (07:58)
[2024-05-02 07:59] VITALS: PULSE 59; RESP 20; O2SAT 94
[2024-05-02] MEDS: Cholecalciferol (Vitamin D3) 25 MCG TABLET PO (07:59)
[2024-05-02] MEDS: Sucralfate 1 GM TABLET PO (07:59)
[2024-05-02] MEDS: Apixaban 2.5 MG TABLET PO (07:59)
[2024-05-02] MEDS: Magnesium Oxide 400 MG TABLET PO (07:59)
[2024-05-02] MEDS: Isosorbide Mononitrate 60 MG TAB.ER.24H 120 MG PO (07:59)
[2024-05-02] MEDS: minoxidiL 2.5 MG TABLET 5 MG PO (07:59)
[2024-05-02] MEDS: Ferrous Sulfate 324 MG TABLET.DR PO (07:59)
[2024-05-02] MEDS: Multivitamin TABLET 1 TAB PO (07:59)
[2024-05-02 08:03] LABS: Hematocrit 29.4 % (42.0-52.0); Hemoglobin 9.8 g/dl (14.0-18.0); Mean Corpuscular HGB Conc 33.3 g/dl (31.0-36.0); Mean Corpuscular Hemoglobin 27.6 pg (27.0-33.0); Mean Corpuscular Volume 82.8 fL (80.0-98.0); Platelet Count 195 X10*3/uL (160-400); Red Blood Count 3.55 X10*6/uL (4.60-5.80); Red Cell Distribution Width 19.6 % (11.0-16.0); White Blood Count 3.1 X10*3/uL (4.8-10.8)
[2024-05-02 08:15] LABS: Anion Gap 14 (12-20); Blood Urea Nitrogen 57 mg/dL (9-16); Carbon Dioxide 26 mmol/L (22-29); Chloride 105 mmol/L (96-108); Creatinine Clr Calc Pharmacy 18.8; Estimated Glomerular Filt Rate 29; Glucose Random 170 mg/dL (60-115); Potassium 3.7 mmol/L (3.3-5.1); Sodium 141 mmol/L (135-145)
[2024-05-02] MEDS: calcitrioL 0.25 MCG CAPSULE 0.5 MCG PO (08:25)
--- NOTE | 2024-05-02 10:16 | MHC.SL.SWA ---
Speech Pathologist Impression: Risk of Aspiration Due to: History of Pneumonia Reduced Cognition Dysphasia Diet Status: Recommend continue on Regular Diet, thin liquids, pills whole with liquid. Liquid Consistency and Strategies for Safe Swallow: Liquid Intake Recommendation: Thin Liquid Intake Strategies: Small Sips Solid Food Consistency: Dietary Recommendations: Regular Additional Modifications to Solid Foods: If family member not present, assure that food is cut into manageable pieces and supervise meal (secondary to patient's vision issues). Oral Medication Intake: Whole with Liquid Please contact the pharmacy regarding appropriate crushable or liquid drug formulations that are available whenever modified delivery is recommended. Compensatory Strategies and Precautions to be Taken for Safe Swallow: Sitting Upright (90 deg) Small Bites and Sips Alternate Liquids/Solids Rate of Ingestion Change Supervision While Eating and Drinking for Safe Swallow: Total Supervision (1:1) Foods to Avoid: dry, sticky, tough to chew. Too large pieces of food. Swallowing Recommended Treatments: Recommendation for Speech: Inpatient Speech Therapy Modified Barium Swallow Study - Outpatient Comment: Patient seen this morning at Breakfast, with present in room and daughter joining mid meal. Patient was awake and seated upright in bed eating some blueberries his had brought from home. Patient's reported that patient is legally blind due to Macular Degeneration and often can't see his food and can need cuing and assistance at times. Patient also can eat too quickly, and needs cuing to slow. Further, Patient has a history of GERD, and has had occasional episodes of Globus sensation, which will lead to attempts to cough it up, but when this occurs only coughs up clear mucus. Patient was observed feeding himself precut pieces of cymro toast, managing this solid bolus well, producing a rotary chew and timely swallow with no difficulties observed. Patient also observed sipping his tea, again producing timely swallow and no evident difficulties. Discussed with downgrading diet to chopped for ease of access and to assure food is in manageable pieces, as well as the con of limited choices from the menu on this diet, with deciding to keep him on Regular Diet with her supervision and assistance (she reports being with him all day). Patient is on least restrictive diet and admission is not associated with GI/Esophogeal issues. Patient is tolerating this diet well, with supervision and assistance from his . Recommend Discharge Speech service at this time. Recommend continue on Regular Diet, thin liquids, pills whole in puree. BRAILLE AND TALKING BOOKS CLERK will discharge th order in expanse. Please re-consult if additional concerns arise during this hospital stay. Frequency/Duration: Date Range for Service Req: M-F Timeline to reassess: Refrigeration Technician Clinican/Clinical Fellow: No Supervisory Statement: I have reviewed and agree with the student/clinical fellow's documentation: N/A Speech Language Pathologist: Antoinette Mensah M.A., CCC-B[employer]IL[employer] AND TALKING BOOKS CLERK
--- NOTE | 2024-05-02 11:00 | PM.DS ---
DS: Providers Provider Date of Service: 05/02/24 Date of admission: 04/29/24 09:51 Date of discharge: 05/02/24 Primary care physician: Francois Blakely MD Consults: 04/29/24 11:25 Consult to Pulmonology Routine Consulting Provider: [facility] Pulmonology Services Reason for consultation: cavitary lesion DS: Diagnosis Discharge Diagnosis (1) Acute metabolic encephalopathy: Status: Acute (2) Cavitary lesion of lung: Status: Acute (3) Acute hypoxemic respiratory failure: Status: Acute (4) Multifocal pneumonia: Status: Acute (5) Acute exacerbation of CHF (congestive heart failure): Status: Acute DS: Summary Hospital Course Hospital Course: from initial hpi: 88-year-old male with history of CAD, IgA, HFrEF 39%, COPD, paroxysmal atrial fibrillation anticoagulated with Eliquis, PVD, HTN, Mobitz 2 s/p pacemaker placement, and CKD stage 3 presented to the hospital via ambulance from home due to significant respiratory distress that started early this morning. He was also complaining of chest pain that did not improve with nitroglycerin x3. Initially, had been in route to [facility] given patient had been admitted last month but was rerouted to [facility] due to significant tachypnea, dyspnea, and patient being combative. He was placed on BiPAP EN route. The patient is awake but unable to provide much history and unable to answer orientation questions. The patient's and son are at bedside who do assist with history. His reports that he has a chronic intermittent cough but he has been experiencing some clear sputum production over the last 5 days. No fevers, chills. No abdominal pain, nausea, vomiting, diarrhea, palpitations. Recently hospitalized at [facility] from 03/09-03/13 and treated for CHF exacerbation, iron-deficiency anemia with possible alcohol GI bleed. He was advised to continue anticoagulation. She reports compliance with Lasix. Reports he has actually been gaining weight, most recently was 126 lb (57 kg) per his . Weight at [facility] on discharge was 59 kg. However, on arrival weight with bed scale was 60.7 kg. While admitted, dicussions were had with the family reagrding hospice/palliative care but family had but unsure at the time. He was made DNR/DNI On arrival to the hospital, patient was requiring Ambu bag was hypertensive to 191/81 and tachypneic. He was weaned to CPAP with improvement in work of breathing. He is currently on 2 L via OxyMask maintaining oximetry 98%. There is no leukocytosis. H/H 11.4/34.6%. Renal function baseline with creatinine 1.83, electrolyte levels normal. BNP 240. Troponin 20.5. Negative COVID, flu, RSV. CXR shows CHF and right lower lobe mass, possible inflammatory versus infectious. Subsequent CT of the chest shows a multifocal pneumonia with the 1.9 mm cavitary lesion right lower lobe, neoplasm can not be excluded with bilateral pleural effusions, [id number] volume. In the ED, he received 80 mg IV Lasix, lorazepam, nitroglycerin, Zosyn, methylprednisolone, and DuoNeb. hospital course: Patient was admitted for acute hypoxic respiratory failure secondary to acute on chronic systolic CHF complicated by multifocal pneumonia with cavitary lesion and COPD with acute decompensation and acute metabolic encephalopathy in the background of unspecified cognitive impairment. Patient was initially diuresed with IV Lasix and then became hypertensive so diuretics were held. We will restart maintenance on discharge. For multifocal pneumonia was treated with IV Zosyn, MRSA nasal swab negative, Legionella negative, was seen by Pulmonary recommended 2 more weeks of oral antibiotics with Augmentin and repeat imaging as well as follow up outpatient. Patient's mental status returned to baseline and he was weaned off oxygen. Will be discharged home on 5 more days of prednisone and Augmentin as mentioned. For chronic iron deficiency with history of large hiatal hernia was continued on PPI. For coronary disease/paroxysmal AFib was continued on carvedilol, statin, isosorbide, Eliquis. For CKD 3 patient remained around baseline with a creatinine of about 2. Patient will be discharged home with visiting services. Time Attestation Discharge Coordination Time (in mins): 34 Quality: Safe Use of Opioids Does Pt have an Active Cancer Diagnosis on the Problem List?: No Quality: Stroke Does the patient have a stroke diagnosis?: No Physical Exam Vital Signs: Vital Signs: Last Vital Signs Temp 97.6 F 05/02/24 07:13 Pulse 59 05/02/24 07:59 Resp 20 05/02/24 07:59 BP 167/70 H 05/02/24 07:13 Pulse Ox 92 05/02/24 07:13 O2 Del Method Room Air 05/02/24 07:13 O2 Flow Rate 1 05/02/24 03:46 BMI result Body Mass Index 21.1 Alert, no acute distress, confused, lungs clear DS: Data Data Completed and Pending Labs on day of discharge: Laboratory Results - last 24 hr 04/29/24 05/01/24 05/02/24 14:26 11:00 07:39 WBC 3.1 L RBC 3.55 L Hgb 9.8 L Hct 29.4 L MCV 82.8 MCH 27.6 MCHC 33.3 RDW 19.6 H Plt Count 195 MPV 10.0 Absolute Nucleated RBC 0.000 Nucleated RBC % (auto) 0.0 Hold Purple Top SEE NOTE Sodium 141 Potassium 3.7 Chloride 105 Carbon Dioxide 26 Anion Gap 14 BUN 57 H Creatinine 2.16 H Estim Creat Clear Calc 18.8 Estimated GFR 29 Random Glucose 170 H Calcium 9.0 Troponin I High Sens 35.7 H D Ur L.pneumophila Ag Not Detected Ur Strep pneumoniae Ag Not Detected Preliminary micro results at discharge 04/29/24 05:14 Blood Culture - Preliminary Blood - Venous No growth after 48 hours. 04/29/24 04:54 Blood Culture - Preliminary Blood - Venous No growth after 48 hours. Discharge Plan Discharge Anticipated Discharge Date/Time: 05/02/24 10:50 Patient Disposition: Home Health Service Discharge Diagnosis: pneumonia Referrals: Francois Blakely MD [Primary Care Provider] - 1 Week Roland Tripathi MD [Physician] - 1 Week Discharge Medications: New prednisone 20 mg tablet 40 mg PO DAILY Qty: 10 0RF amoxicillin-pot clavulanate 875-125 mg tablet 1 tab PO Q12H Qty: 28 0RF Continued atorvastatin 20 mg tablet 20 mg PO BEDTIME nifedipine 30 mg tablet extended release 30 mg PO BEDTIME isosorbide mononitrate 120 mg tablet extended release 24 hr 120 mg PO DAILY tamsulosin 0.4 mg capsule 0.4 mg PO BEDTIME furosemide 80 mg tablet 80 mg PO DAILY pantoprazole 40 mg tablet,delayed release (DR/EC) 40 mg PO DAILY@0600 calcitriol 0.5 mcg capsule 0.5 mcg PO DAILY nitroglycerin 0.4 mg tablet, sublingual 0.4 mg sublingual Q5M PRN (Reason: Chest Pain) hydroxyzine HCl 25 mg tablet 25 mg PO TID PRN (Reason: Inflammation/Rash) albuterol sulfate 90 mcg/actuation HFA aerosol inhaler 2 puff inhalation Q4H PRN (Reason: Shortness Of Breath Or Wheezing) Eliquis 2.5 mg tablet 2.5 mg PO BID Anoro Ellipta 62.5-25 mcg/actuation blister with device 1 ea inhalation DAILY Gemtesa 75 mg tablet 75 mg PO DAILY carvedilol 12.5 mg tablet 12.5 mg PO BID albuterol sulfate 2.5 mg /3 mL (0.083 %) solution for nebulization 2.5 mg inhalation Q6H PRN (Reason: Shortness Of Breath Or Wheezing) sucralfate 1 gram tablet 1 g PO TID minoxidil 2.5 mg tablet 5 mg PO DAILY acetaminophen 500 mg Tablet 500 mg PO Q6H PRN (Reason: Pain) ascorbic acid (vitamin C) [Vitamin C] 500 mg Tablet 500 mg PO Q48H hydrocortisone 1 % Cream 1 appl TOPICAL BID PRN (Reason: Inflammation) pantoprazole 40 mg tablet,delayed release (DR/EC) 80 mg PO BEDTIME@1630 ferrous sulfate 325 mg (65 mg iron) Tablet 325 mg PO Q48H cholecalciferol (vitamin D3) [Vitamin D3] 25 mcg (1,000 unit) Tablet 25 mcg PO DAILY PreserVision AREDS 2,148 mcg-113 mg-45 mg-17.4mg Tablet 1 tab PO BID Rx Instructions: administer with AM and PM meals magnesium oxide 400 mg magnesium Tablet 400 mg PO DAILY Discharge Orders: Discharge Order (Routine); Ordered 05/02/24 Ordered By: Raymundo Mora Diet: Advance to usual diet Activity on Discharge: As tolerated Stand Alone Forms: Patient Portal Discharge page Print Language: Hungarian Care Plan Goals: recovery Health Concerns: pna Plan of Treatment: 5 days prednisone, 14 days augmentin, follow up with pulmonary Assessment: see above
--- NOTE | 2024-05-02 11:03 | W.MHC.F2F ---
Service Date Service Date: 05/02/24 Encounter Date of encounter: 05/02/24 Reasons for Services Signs and symptoms assessed: Frailty, shortness breath on exertion, weakness Reason for long term: medication management, medication treatment and teach disease management Reason for physical therapy: home safety and mobility, therapeutic exercises and gait/transfer training Homebound: Leaving the home is medically contraindicated at this time without the asist of a device and/or another person due th the listed conditions above and below. Reason homebound: unsteady gait / fall risk Certification: Based on the above findings, I certify that this patient is confined to the home and needs intermittent long term care, physical therapy and/or speech therapy, or continues to need occupational therapy. The patient is under my care, and I have initiated the establishment of the plan of care. The patient will be followed by a physician who will periodically review the plan of care. Time Spent With Patient Time: Total time managing care of this patient today ____ minutes.
[2024-05-02 11:18] VITALS: BP 117/50; PULSE 65; RESP 18; TEMP 37; O2SAT 95
--- NOTE | 2024-05-02 11:33 | MHC.CM.PN ---
PT MEDICALLY CLEARED FOR DC, CM MET W/FAMILY AT BEDSIDE AND THEY ARE DECLINING HOME SERVICES/PT, FAMILY AT BEDSIDE AND WILL TRANSPORT PT.
== END 2024-05-02 12:43 | disposition home or self-care (01) | DRG 193 ==
LOC: HO.ED 07:43 → HO.EDOVER 10:08 → HO.IMC 23:22
PROVIDERS: Student in an Organized Health Care Education/Training Program; Admitting Provider Physician Assistant; Emergency Provider Emergency Medicine; PCP Family Medicine; Visit Provider Internal Medicine
DX: J18.9 Pneumonia, unspecified organism (principal); G93.41 Metabolic encephalopathy; I50.23 Acute on chronic systolic (congestive) heart failure; J96.01 Acute respiratory failure with hypoxia; I13.0 Hypertensive heart and chronic kidney disease with heart failure and stage 1 through stage 4 chronic kidney disease, or unspecified chronic kidney disease; J44.0 Chronic obstructive pulmonary disease with (acute) lower respiratory infection; I25.10 Atherosclerotic heart disease of native coronary artery without angina pectoris; J98.4 Other disorders of lung; Z66 Do not resuscitate; N18.30 Chronic kidney disease, stage 3 unspecified; I48.0 Paroxysmal atrial fibrillation; I44.1 Atrioventricular block, second degree; D50.9 Iron deficiency anemia, unspecified; Z95.0 Presence of cardiac pacemaker; Z95.5 Presence of coronary angioplasty implant and graft; Z20.822 Contact with and (suspected) exposure to COVID-19; Z87.891 Personal history of nicotine dependence; Z79.01 Long term (current) use of anticoagulants; Z79.899 Other long term (current) drug therapy
CPT/HCPCS: 0241U; 36415; 71045; 71250; 80048; 80076; 80202; 82803; 82947; 83605; 83735; 83880; 84484; 85025; 85027; 85610; 87040; 87449; 87640; 87641; 87899; 92526; 92610; 93005; 97110; 97116; 97162; 99285; J1940; J2060; J2543; J2919; J3370; J3371

== ENCOUNTER → 2024-04-29 05:02 | Outpatient (BNV) | payer MEDICARE, SELFPAY | PROVIDERS: Admitting Provider Physician Assistant; Emergency Provider Emergency Medicine; PCP Family Medicine; Visit Provider Internal Medicine Cardiovascular Disease | DX: I49.8 Other specified cardiac arrhythmias (principal); I49.3 Ventricular premature depolarization; Z95.0 Presence of cardiac pacemaker | CPT/HCPCS: 93010 ==

== ENCOUNTER 2024-04-29 09:51 | Outpatient (BNV) | payer MEDICARE, SELFPAY | END 2024-05-01 07:00 | PROVIDERS: Admitting Provider Physician Assistant; Emergency Provider Emergency Medicine; PCP Family Medicine; Visit Provider Radiology Diagnostic Radiology | DX: J18.9 Pneumonia, unspecified organism (principal) | CPT/HCPCS: 71045 ==

== ENCOUNTER → 2024-04-29 09:51 | Outpatient (BNV) | payer MEDICARE, SELFPAY | PROVIDERS: Admitting Provider Physician Assistant; Emergency Provider Emergency Medicine; PCP Family Medicine; Visit Provider Physician Assistant | DX: G93.41 Metabolic encephalopathy (principal); J98.4 Other disorders of lung; J96.01 Acute respiratory failure with hypoxia; J18.9 Pneumonia, unspecified organism; I50.9 Heart failure, unspecified | CPT/HCPCS: 99223; 99233; 99239; G0180 ==

== ENCOUNTER → 2024-04-29 09:51 | Outpatient (BNV) | payer MEDICARE, SELFPAY | PROVIDERS: Admitting Provider Physician Assistant; Emergency Provider Emergency Medicine; PCP Family Medicine; Visit Provider Hospitalist | DX: J98.4 Other disorders of lung (principal); J96.01 Acute respiratory failure with hypoxia; J18.9 Pneumonia, unspecified organism; I50.9 Heart failure, unspecified | CPT/HCPCS: 99223 ==